=== PATIENT | male | born 2000 | race Two or more races ===

== ENCOUNTER 2024-12-01 16:05 | Inpatient (IN) | payer MEDICAID, OTHER ==
[~2024-12-01] VITALS: Ht 182.9 cm; Wt 82.6 kg
--- NOTE | 2024-12-01 16:50 | ED.PDOC ---
History of Present Illness HPI Comments 24 y/o M, with a history of pneumothorax and tobacco use, presents from [facility] urgent care facility for c/o chest pain, shortness of breath wither exertion, lightheadedness, and dizziness for 1x week, today. Patient reports being sent, due to complaints and having an abnormal EKG. Patient endorses on no recent sick contact, strenuous activities, or stressors. He denies any nausea, vomiting, palpitations, fever, chills, or other associated symptoms or modifiers at this time. Patent reports remote history of spontaneous pneumothorax 1 year ago. Chief Complaint: Chest Pain Time Seen by MD: 16:30 Reviewed Notes: Nurses Notes, Medications, Allergies Allergies: Coded Allergies: Amoxicillin (Verified Allergy, Unknown, 12/01/24) Erythromycin (Verified Allergy, Unknown, 12/01/24) Information Source: Patient Mode of Arrival: Wheelchair Severity: Moderate Timing: Weeks Duration: Since onset Prehospital treatment: None Past Medical History Past Medical History (Other): pneumothorax Surgical History (Other): left-knee surgery Family History Family History: Unknown Social History Smoker: Cigarettes Alcohol: Denies ETOH Use Drugs: Denies Drug Use Lives In: Home All Other Systems: Reviewed and Negative (Comprehensive systems review obtained and negative except for what is stated in the HPI.) Physical Exam General Appearance: Moderate Distress HEENT: Normal ENT Inspection, Pharynx Normal, TMs Normal Neck: Full Range of Motion, Non-Tender, Normal, Normal Inspection Respiratory: Other (Coarse breath sounds) Cardiovascular: No Edema, No JVD, No Murmur, No Gallop, Normal Peripheral Pulses, Regular Rate/Rhythm Breast Exam: Deferred Gastrointestinal: No Organomegaly, Non Tender, No Pulsatile Mass, Normal Bowel Sounds, Soft Genitalia: Deferred Pelvic: Deferred Rectal: Deferred Extremities: No calf tenderness, Normal capillary refill, Normal inspection, Normal range of motion, Non-tender, No pedal edema Musculoskeletal : Apperance: Normal Neurologic: Alert, soil and plant scientist II-XII nml as Tested, No Motor Deficits, Normal Affect, Normal Mood, No Sensory Deficits Cerebellar Function: Normal Reflexes: Normal Skin: Dry, Normal Color, Warm Peripheral Pulses: 3+ Radial (R), 3+ Radial (L) Lymphatic: No Adenopathy Was a procedure done? Was a procedure done?: No Differential Dx Considerations may include: [place], PE, ACS, URI, viral syndrome, COPD exacerbation, among others X-Ray, Labs, Meds, VS Vital Signs Date Time Temp Pulse Resp B/P (MAP) Pulse Ox O2 Delivery O2 Flow Rate FiO2 12/01/24 16:23 100.0 70 18 105/65 (78) 100 100.0 12/01/24 16:15 75 Patient alert. Complaining of shortness a breath. Saturation pristine on room air. Heart rate within normal limits. COPD. History of emphysema. Blebs. Unable to ambulate without being short of breath. Possibly will need CT chest. Establish intravenous access. Was given Levaquin. Reviewed his previous visit. Explained to the patient. Continue monitoring. EKG reviewed does not show any acute changes. Time of 1ST Reevaluation: 17:00 Reevaluation 1ST: Unchanged Patient Education/Counseling: Diagnosis, Treatment Family Education/Counseling: No Family Present Departure 1 Departure Time of Disposition: 17:10 Impression: Primary Impression: COPD exacerbation Additional Impression: Pneumonitis Disposition: ADMITTED INPATIENT Admit to: Med Surg Condition: Guarded Critical Care Note Critical Care Time?: No Stability Stability form required: No Heart Score Heart Score: Heart Score Response (Comments) Value History Moderate Suspicious 1 EKG Normal 0 Age <45 0 Risk Factors >3 or Hx ASHD 2 Troponin Normal limit 0 Total 3 I personally scribed for LEX HALL MD ([email or web address]) on 12/01/24 at 16:50. Electronically submitted by Erwin Glover ([email or web address]). LEX HALL MD Dec 01, 2024 16:50
--- NOTE | 2024-12-01 17:32 | DVH ---
EXAM: XY CHEST PORTABLE TECHNIQUE: Single frontal chest radiograph CLINICAL HISTORY: sob COMPARISON: None Findings/Impression: Frontal chest radiograph demonstrates no acute osseous or superficial soft tissue abnormalities. The trachea is midline. The cardiac silhouette and mediastinum are within normal limits. No pneumothorax, pleural effusions, or consolidations.
[2024-12-01 17:33] LABS: Basophils # (auto) 0 10 ^3/uL (0-0.2); Basophils % (auto) 0.7 % (0.0-2.0); Eosinophils # (auto) 0.1 10 ^3/uL (0-0.8); Eosinophils % (auto) 1.1 % (0.0-7.0); Hemoglobin 15.3 g/dL (13.5-17.5); Lymphocytes # (auto) 1.8 10 ^3/uL (0.4-5.4); Lymphocytes % (auto) 27.8 % (10.0-50.0); Mean Corpuscular Hemoglobin 30.7 pg (28.0-32.0); Mean Corpuscular Hgb Conc. 34.1 g/dL (32.0-36.0); Mean Corpuscular Volume 90.2 fL (80.0-100.0); Monocytes # (auto) 0.4 10 ^3/uL (0-1.3); Monocytes % (auto) 6.6 % (0.0-12.0); Neutrophils # (auto) 4.2 10 ^3/uL (1.6-8.6); Neutrophils % (auto) 63.8 % (37.0-80.0); Platelet Count (auto) 212 10^3/uL (140-450); Red Blood Cells 4.99 10^6/uL (4.5-5.90); Red Cell Distribution Width 13.2 % (11.8-14.3); White Blood Cell 6.5 10^3/uL (4.4-10.8)
[2024-12-01 17:43] LABS: Chloride 106 mmol/L (98-107); Potassium 3.8 mmol/L (3.5-5.1); Sodium 140 mmol/L (136-145)
[2024-12-01 17:44] LABS: Anion Gap 12 (5-15); Calcium 10.4 mg/dL (8.7-10.4); Carbon Dioxide 22 mmol/L (20-31)
[2024-12-01 17:49] LABS: BUN/Creatinine Ratio 10.9 (10.0-20.0); Blood Urea Nitrogen 12 mg/dL (9-23); Glucose 89 mg/dL (74-106)
[2024-12-01] MEDS: levoFLOXacin 500MG 100 ML IV ONE (17:54)
[2024-12-01 19:32] VITALS: RESP 18
[2024-12-01] MEDS: ACETAMINOPHEN 325 MG TAB PO ONE (19:47)
[2024-12-01] MEDS: ASPirin 81 mg TAB PO ONE (19:47)
--- NOTE | 2024-12-01 21:44 | DVH ---
EXAM: XY CHEST XRAY 1 VIEW CLINICAL HISTORY: Chest pain TECHNIQUE: Single AP view of the chest WID: COMPARISON: XY CHEST PORTABLE on DOS: 12/01/24 FINDINGS: Lines and tubes: None Chest: The heart size and pulmonary vasculature is within normal limits. No pleural effusion, pneumothorax, or consolidation. The osseous structures are grossly intact. IMPRESSION: No acute cardiopulmonary abnormality.
[2024-12-01] MEDS: KETOROLAC TROMETH 30 MG/ML 1ML VIAL IV ONE (22:01)
[2024-12-01] MEDS: MORPHINE SULFATE INJ 2 MG/ml SYRG IV ONE (22:01)
--- NOTE | 2024-12-01 22:53 | DVHHPRES ---
History of Present Illness Resident Creating Document: JOHANNE TURNER RESIDENT History of Present Illness 24-year-old male patient with past medical history of spontaneous pneumothorax, tobacco use disorder presented with complaints of chest pain, shortness of breath, lightheadedness, syncope. Patient started having chest pain one month ago for which she went to [place] where he was discharged and was told that he has blebs on the imaging, went to [place] where he was discharged from the ED. patient started having on and off chest pain and for last seven days mentioned the chest pain is constant which he describes as diffuse, nonradiating, sharp, no relation with activity or posterior, no aggravating or relieving factors. He also mentioned for last three days he started having associated shortness of breath which increased on exertion and lightheadedness, per girlfriend bedside patient blacked out for 30 seconds three days ago. Patient mentioned that he had spontaneous pneumothorax one year ago for which he had chest tube placement. He also mentioned he was told that he has 2 mm lung nodule. Past medical history Spontaneous pneumothorax Migraine Past Surgical history Chest tube placement Medication history Sumatriptan and ondansetron Social history Patient vapes, takes around 40 puffs every day, used to smoke two pack cigarettes before that Occasional alcohol use Denied marijuana or any other drug intake Allergic history Amoxicillin and azithromycin Family history Lung cancer at the age of 25, Graves disease Review of Systems Review of Systems As described in the HPI Allergies: Coded Allergies: Amoxicillin (Verified Allergy, Unknown, 12/01/24) Erythromycin (Verified Allergy, Unknown, 12/01/24) Exam Vital Signs Vital Signs Date Time Temp Pulse Resp B/P (MAP) Pulse Ox O2 Delivery O2 Flow Rate FiO2 12/01/24 22:01 72 18 101/58 12/01/24 21:05 98.7 100 98.7 12/01/24 19:32 Room Air* 0 21 21 Exam Examination General Appearance: Alert, Oriented X3, Cooperative, No acute distress HEENT: EOMI Respiratory: Clear to auscultation, Normal air movement Cardiovascular: Regular rate, Normal S1, Normal S2 Abdominal: Normal bowel sounds Extremities: No cyanosis, No edema, Normal pulses, No tenderness/swelling Skin: No rashes, No breakdown Neuro: Normal gait, Normal speech, Strength at 5/5 X4 ext, Normal tone, Sensation intact, Cranial nerves 3-12 NL, Reflexes 2+ Psych/Mental Status: Mental status NL, Mood NL Labs/Xrays Labs Test 12/01/24 21:20 12/01/24 16:41 Range/Units Troponin I High Sensitivity 4 </=54 ng/L White Blood Count 6.5 4.4-10.8 10^3/uL Red Blood Count 4.99 4.5-5.90 10^6/uL Hemoglobin 15.3 13.5-17.5 g/dL Hematocrit 45.0 41.0-53.0 % Mean Corpuscular Volume 90.2 80.0-100.0 fL Mean Corpuscular Hemoglobin 30.7 28.0-32.0 pg Mean Corpuscular Hemoglobin Concent 34.1 32.0-36.0 g/dL Red Cell Distribution Width 13.2 11.8-14.3 % Platelet Count 212 140-450 10^3/uL Mean Platelet Volume 9.3 6.9-10.8 fL Neutrophils (%) (Auto) 63.8 37.0-80.0 % Lymphocytes (%) (Auto) 27.8 10.0-50.0 % Monocytes (%) (Auto) 6.6 0.0-12.0 % Eosinophils (%) (Auto) 1.1 0.0-7.0 % Basophils (%) (Auto) 0.7 0.0-2.0 % Neutrophils # (Auto) 4.2 1.6-8.6 10 ^3/uL Lymphocytes # (Auto) 1.8 0.4-5.4 10 ^3/uL Monocytes # (Auto) 0.4 0-1.3 10 ^3/uL Eosinophils # (Auto) 0.1 0-0.8 10 ^3/uL Basophils # (Auto) 0 0-0.2 10 ^3/uL Nucleated Red Blood Cells 0.0 % D-Dimer, Quantitative < 0.19 0.0-0.49 mg/L FEU Sodium Level 140 136-145 mmol/L Potassium Level 3.8 3.5-5.1 mmol/L Chloride Level 106 98-107 mmol/L Carbon Dioxide Level 22 20-31 mmol/L Anion Gap 12 5-15 Blood Urea Nitrogen 12 9-23 mg/dL Creatinine 1.10 0.700-1.30 mg/dL Glomerular Filtration Rate Calc 96 >90 mL/min BUN/Creatinine Ratio 10.9 10.0-20.0 Serum Glucose 89 74-106 mg/dL Calcium Level 10.4 8.7-10.4 mg/dL Assessment/Plan Assessment/Plan Assessment/plan # acute hypoxic respiratory failure, currently on 2 L # history of spontaneous pneumothorax -duo nebs p.r.n. -CT chest -IV antibiotics considering patient has fever and pleuritic type of chest pain with possibility of pneumonia # chest pain, rule out ACS -pleuritic type of chest pain, which is sharp -EKG, trops # syncope Head CT with CTA head and neck Carotid ultrasound Echocardiogram TSH, B12, folate # lung nodule Repeat CT chest # tobacco and vaping use disorder -Counseling for cessation VT prophylaxis Patient is ambulatory Case discussion with Dr. Sorensen Plan discussed with: Other My Orders Orders - JOHANNE TURNER Procedure Category Date Status Time Admit ADMIT 12/01/24 Transmitted 22:21 Oxygen By Nasal RT 12/01/24 Transmitted Cannula 22:21 Stat Ekg For Chest MIRIAM 12/01/24 In Process Pain 22:21 Notify Md Of Changes MIRIAM 12/01/24 In Process From Base 22:21 Certified Forklift Operator For MIRIAM 12/01/24 In Process 24 Hours 22:21 Emergency Dysrhythmia MIRIAM 12/01/24 In Process Protocol 22:21 Rhythm Strips Once [facility] 12/01/24 In Process Every Shift 22:21 Date of Service: Dec 01, 2024 Billing Provider: RADHA SORENSEN MD Common Visit Codes: [id number] INP/OBS CARE (HIGH) JOHANNE TURNER RESIDENT Dec 01, 2024 22:53 RADHA SORENSEN MD Dec 02, 2024 19:37
[2024-12-01] MEDS: cefTRIAXone 1GM/50ML D5W 50 ML IV ONE (23:45)
[2024-12-01 23:52] VITALS: BP 101/58; PULSE 72; RESP 18; TEMP 98.7; O2SAT 98
[2024-12-02] VITALS (14 sets, daily range): BP systolic 97–117; BP diastolic 50–74; PULSE 54–72; RESP 14–28; TEMP 97–97.7; O2SAT 98–100
[2024-12-02 00:13] LABS: Folate (Folic Acid) 14.99 ng/mL (>5.38)
[2024-12-02] MEDS: IOHEXOL 350 MG/ML 100ML IJ ONE (00:34)
--- NOTE | 2024-12-02 00:41 | DVH ---
Carotid Duplex Clinical History: SYNCOPE Comparison: None Technique: Duplex Doppler evaluation of the extracranial carotid and vertebral arteries including color Doppler and spectral/pulsed waveform analysis was performed. Findings: RIGHT SIDE: No significant atherosclerotic plaque noted. The peak systolic velocities are 136 cm/s in the CCA, 139 cm/s in the ICA. The ICA/CCA ratio is 1.0. The external carotid artery is patent with peak systolic velocity of 87 cm/s proximally. There is appropriate antegrade flow in the right vertebral artery. LEFT SIDE: No significant atherosclerotic plaque noted. The peak systolic velocities are 124 cm/s in the CCA, 118 cm/s in the ICA. The ICA/CCA ratio is 1.0. The external carotid artery is patent with peak systolic velocity of 91 cm/s proximally. There is appropriate antegrade flow in the left vertebral artery. IMPRESSION: No evidence of hemodynamically significant stenosis. Reference: Radiology 2003; 229:340-346 Normal ICA PSV is <125 cm/sec and no plaque or intimal thickening is visible sonographically additional criteria include ICA/CCA PSV ratio <2.0 and ICA EDV <40 cm/sec <50% ICA stenosis ICA PSV is <125 cm/sec and plaque or intimal thickening is visible sonographically additional criteria include ICA/CCA PSV ratio <2.0 and ICA EDV <40 cm/sec 50-69% ICA stenosis ICA PSV is 125-230 cm/sec and plaque is visible sonographically additional criteria include ICA/CCA PSV ratio of 2.0-4.0 and ICA EDV of 40-100 cm/sec 70% ICA stenosis but less than near occlusion ICA PSV is >230 cm/sec and visible plaque and luminal narrowing are seen at mason-scale and color Dopp ler ultrasound (the higher the Doppler parameters lie above the threshold of 230 cm/sec, the greater the likelihood of severe disease) additional criteria include ICA/CCA PSV ratio >4 and ICA EDV >100 cm/sec
[2024-12-02] MEDS: DOXYCYCLINE 100MG/100ML 100 ML IV ONE (00:43)
--- NOTE | 2024-12-02 00:48 | DVH ---
INDICATION: SYNCOPE COMPARISON: None TECHNIQUE: CTA head without and with intravenous contrast. CTA neck with intravenous contrast. 3D image postprocessing was performed on a dedicated workstation and images were used for interpretation and reporting. Radiation Dose Information: CT Dose: CTDI volume is mGy. Dose-length product is mGy*cm FINDINGS: CT head: There is no evidence of intracranial hemorrhage, infarct, extra-axial collection, mass effect, midli ne shift, herniation or hydrocephalus. The ventricles, sulci and cisterns are normal. The mason-whit e differentiation is normal. Visualized paranasal sinuses and mastoid air cells are clear. Soft ti ssues and osseous structures are unremarkable. CTA head: No abnormality is demonstrated in intracranial ICAs, MCAs, and ACAs. Intracranial vertebral arteries, basilar artery, and recreation attendant supervisor are also unremarkable. Visualized intracranial venous structures are grossl y unremarkable. CTA neck: Aortic arch and proximal great vessels are unremarkable. Left common, internal and external carotid arteries are normal. Right common, internal and external carotid arteries are normal. Cervical segments of the right and left vertebral arteries are normal. Limited visualized lung apices are clear. Soft tissues and osseous structures are grossly unremarkab le. IMPRESSION: No abnormality demonstrated. All CT scans at this medical facility are performed using dose modulation techniques as appropriate t o a performed exam including the following: Automated exposure control was utilized; adjustment of th e MA and/or KV according to patient size; and use of iterative reconstruction technique.
[2024-12-02] MEDS: IPRATROPIUM BROM 0.5 MG/2.5ML INH SOL NEB PRN (01:35)
[2024-12-02] MEDS: ALBUTEROL SULF 2.5 MG/0.5ML(0.5%) NEB SOLN NEB PRN (01:36)
--- NOTE | 2024-12-02 01:54 | DVH ---
Procedure: CT CHEST WITHOUT CONTRAST Reason for study/Clinical History: SHORTNESS OF BREATH Comparison Study: None available at time of dictation. Exam Date: 12/02/2024 12:05 AM TECHNIQUE: Multidetector CT of the chest was performed from the lung apices to the upper abdomen with out the use of intravenous contract. Axial, coronal and sagittal multiplanar reformats were performed . Radiation Dose Information: CT Dose: CTDI volume is mGy. Dose-length product is mGy*cm The dose indicators for CT are the volume Computed Tomography (CT) Dose Index (CTDIvol) and the Dose Length Product (DLP), and are measured in units of mGy and mGy-cm, respectively. These indicators are not patient dose, but values generated from the CT scanner acquisition factors. The report includes radiation exposure data for exposures received during this examination. FINDINGS: Lower neck: Unremarkable. Lungs: No focal consolidation. Pleura: No pleural effusion or pneumothorax. Heart/Vascular Structures: Normal heart size. No pericardial effusion. Normal thoracic aorta. Mediastinum / Lymph Nodes: No abnormality demonstrated. No lymphadenopathy. Musculoskeletal: No acute osseous abnormality. Soft tissues: Unremarkable. Upper abdomen: Unremarkable. IMPRESSION: No abnormality demonstrated. Radiation optimization: All CT scans at this facility use at least one of these dose optimization turner hniques: automated exposure control mA and/or kV adjustment per patient size (includes targeted exam s where dose is matched to clinical indication) or iterative reconstruction.
[2024-12-02] MEDS: KETOROLAC TROMETH 30 MG/ML 1ML VIAL IV PRN (01:55)
[2024-12-02 04:06] LABS: COVID19 ANTIGEN SOFIA FIA NEGATIVE (NEGATIVE); Rapid Influenza A Negative (Negative); Rapid Influenza B Negative (Negative)
[2024-12-02] MEDS ORDERED: ACET-1304 PO (04:07)
[2024-12-02] MEDS ORDERED: ZOFR4T PO (04:07)
[2024-12-02] MEDS ORDERED: SUMA100T15 PO (04:07)
[2024-12-02] MEDS ORDERED: ALBUAER3 IN (04:07)
--- NOTE | 2024-12-02 04:53 | ECG ---
[facility] Test Date: 2024-12-02 Test Time: 00:41:28 Pat Name: GRACIELA HOPE Department: ED Room: 0270T Gender: M Tool Carrier: : 2000 Requested By: JOHANNE TURNER Order Number: [id number] Reading MD: Ricco Ewing Measurements Intervals [place] Rate: 66 P: 0 KS: 131 QRS: -83 QRSD: 90 T: 22 QT: 395 QTc: 414 Interpretive Statements Sinus rhythm Atrial premature complex Left anterior fascicular block Probable anteroseptal infarct, old Electronically Signed On 12-07-2024 20:41:51 PDT by Ricco Ewing Please click the below link to view image of tracing.
[2024-12-02 05:44] LABS: Urine Bacteria None Seen /hpf (None Seen)
[2024-12-02 06:31] LABS: Urine Blood Negative /uL (Negative); Urine Clarity Clear (Clear); Urine Color Yellow (Yellow); Urine Protein, UAD 1+ (Negative); Urine Specific Gravity > 1.035 (1.001-1.035); Urine Squamous Epithelial Cell None Seen /hpf (<5); Urine Urobilinogen 2 mg/dL (Negative); Urine WBC 4 /HPF (0-3); Urine pH 7.5 (5.0-9.0)
[2024-12-02 06:34] LABS: Opiate Scree,Urine Pos (NEGATIVE); Phencyclidine Screen, Urine Neg (NEGATIVE)
[2024-12-02 06:41] LABS: Amphetamine Screen, Urine Neg (NEGATIVE); Barbiturate Scree,Urine Neg (NEGATIVE); Benzodiazephine Screen, Urine Neg (NEGATIVE); Cannabinoid Screen, Urine Neg (NEGATIVE); Cocaine Screen, Urine Neg (NEGATIVE)
[2024-12-02] MEDS: MORPHINE SULFATE INJ 2 MG/ml SYRG IV PRN (06:48)
--- NOTE | 2024-12-02 11:39 | ECG ---
[facility] Test Date: 2024-12-02 Test Time: 10:14:43 Pat Name: GRACIELA HOPE Department: [facility] Room: 0270T Gender: M Ip Network Architect: krystal : 2000 Requested By: KHADAR PETTIT Order Number: [id number] Reading MD: Ricco Ewing Measurements Intervals [place] Rate: 47 P: 59 DE: 160 QRS: -56 QRSD: 98 T: 28 QT: 424 QTc: 375 Interpretive Statements Sinus bradycardia LAD, consider left anterior fascicular block Anterior infarct, old Electronically Signed On 12-07-2024 20:47:01 PDT by Ricco Ewing Please click the below link to view image of tracing.
--- NOTE | 2024-12-02 12:33 | DVHSR ---
APPROVED REPORT EXAM: Two-dimensional and M-mode echocardiogram with Doppler and color Doppler. Blood Pressure: 127/68 mmHg INDICATION MONTERO RISK FACTORS Height: 70, Weight: 145 DIMENSIONS LVDd4.9 (3.8-5.7cm)LA (2D)3.5 (1.9-4.0cm)Aortic Root3.2 (2.0-3.7cm) LVDs3.2 (2.5-4.0cm)LA (MM) (1.9-4.0cm)Aortic Cusp Exc1.9 (1.5-2.0cm) EF (%) 64.0 (55-70%)Rt. Atrium (1.9-4.0cm)Asc. Aorta cm IVSd0.8 (0.7-1.1cm)RV (D) (1.8-2.4cm) PWd0.8 (0.7-1.1cm) Mitral Valve MitralMitral Stenosis E wave0.60m/sMV Mean GR.mmHg A wave0.48m/sMV Peak GR.mmHg E/A ratio1.32D MVAcm2 DECEL [id number] 1/2 Timems Aortic Valve Aortic ValveAortic Stenosis V10.73m/Yuliya Mean GR.3mmHg V21.21m/Yuliya Peak GR.6mmHg LVOT Diameter1.9 (1.8-2.4cm)Doppler AVA1.71cm2 Pulmonic Valve V20.82m/s Other Information Technically limited study due to body habitus and patient position. Conclusion lvef 60% by visual estimate normal RV function no severe valve abnormalities noted dilated IVC is noted, trivial pericardial effusion
--- NOTE | 2024-12-02 13:19 | DVHPNRES ---
Progress Note Date Seen: Dec 02, 2024 Resident Creating Document: CINTHYA BISHOP RESIDENT Has the PT tested + for MRSA If YES, has PT been informed?: No Medical Necessity Reason Pt with a Central, PICC or Fol: No Medical Necessity Reason 24-year-old male patient with past medical history of spontaneous pneumothorax, tobacco use disorder presented with complaints of chest pain, shortness of breath, lightheadedness, syncope. Patient started having chest pain one month ago for which she went to [place] where he was discharged and was told that he has blebs on the imaging, went to [place] where he was discharged from the ED. patient started having on and off chest pain and for last seven days mentioned the chest pain is constant which he describes as diffuse, nonradiating, sharp, no relation with activity or posterior, no aggravating or relieving factors. He also mentioned for last three days he started having associated shortness of breath which increased on exertion and lightheadedness, per girlfriend bedside patient blacked out for 30 seconds three days ago. Patient mentioned that he had spontaneous pneumothorax one year ago for which he had chest tube placement. He also mentioned he was told that he has 2 mm lung nodule. Past medical history :Spontaneous pneumothorax,Migraine Past Surgical history: Chest tube placement Medication history: Sumatriptan and ondansetron Social history: Patient vapes, takes around 40 puffs every day, used to smoke two pack cigarettes before that, Occasional alcohol use, Denied marijuana or any other drug intake Allergic history: Amoxicillin and azithromycin Family history: Lung cancer at the age of 25, Graves disease PN: 12/02/2024 Patient continue to have chest pain. Ischemic work up thus far is negative. He is currently on pain management and oxygen. His UDS came back positive for fentanyl and opiates. Opiates most likely from the morphine he received at the Hospital early. ECHO showed lvef 60% by visual estimate normal RV function Subjective Review of Systems Constitutional: Denies fever no chills no feeling of malaise, generalized chest discomfort HEENT: Denies headache, ear pain, ear discharges, conjunctivitis, nasal discharge throat pain Cardiovascular: chest discomfort, tensed feeling, palpitation, orthopnea, PND, or pedal edema Respiratory: Denies shortness of breath, cough cough, sputum production, hemoptysis, GI: Denies abdominal pain, nausea, vomiting, diarrhea, hematemesis, hematochezia, : Denies frequency, urgency, hematuria, Endocrine: Denies unintentional weight gain or weight loss, feeling of hot flashes, Richie: Denies easy bruising, bleeding disorders, epistaxis Musculoskeletal: Denies joint pains, muscle aches Psych: No evidence of depression, michael, suicidal ideation Objective vital signs Vital Sign Date Time Temp Pulse Resp B/P (MAP) Pulse Ox O2 Delivery O2 Flow Rate FiO2 12/02/24 13:10 97.7 54 15 97/60 (72) 100 97.7 12/02/24 10:00 Nasal Cannula* 2 28 Total Intake and Output 12/01/24 12/01/24 12/02/24 15:00 23:00 07:00 Intake Total 500 ml Balance 500 ml medications Current Medications Medications Dose Ordered Sig/Larry Route Start Time Stop Time Status Last Admin Dose Admin Ipratropium [place] 0.5 mg Q4HPRN PRN NEB 12/01/24 23:45 12/02/24 01:35 0.5 MG Albuterol 2.5 mg Q4HPRN PRN NEB 12/01/24 23:45 12/02/24 01:36 2.5 MG Ketorolac Tromethamine 15 mg Q6HPRN PRN IV 12/02/24 01:15 12/07/24 01:14 12/02/24 09:22 15 MG Morphine Sulfate 0.5 mg Q6HP PRN IV 12/02/24 05:45 12/02/24 06:48 0.5 MG Examination General Appearance: Alert, Oriented X3, Cooperative, No acute distress, chest pressure HEENT: Atraumatic, PERRLA, EOMI, Mucous membrane moist/pink Respiratory: Clear to auscultation, Normal air movement Cardiovascular: bradycardia, Normal S1, Normal S2, No murmurs, no chest wall tenderness Abdominal: NO distention, no tenderness, bowel sounds present, no scars noted Extremities: No clubbing, No cyanosis, No edema, Normal pulses, No tenderness/swelling Skin: No rashes, No breakdown, No significant lesion Neuro: Normal gait, Normal speech, Strength at 5/5 X4 ext, Normal tone, Sensation intact, Cranial nerves 3-12 NL, Reflexes 2+ Psych/Mental Status: Mental status NL, Mood NL laboratory and microbiology Laboratory Tests 12/01/24 16:41 Test 12/01/24 16:41 Range/Units Serum Glucose 89 74-106 mg/dL Problem List/Assessment/Plan Problem List/Assessment/Plan Assessment Recurrent small Spontaneous pneumothorax --> History of spontaneous pneumothorax --> Pain management --> Oxygen PRN, on 2L oxygen Acute hypoxic respiratory failure, currently on 2 L --> duo nebs p.r.n. --> CT chest: --> IV antibiotics considering patient has fever and pleuritic type of chest pain with possibility of pneumonia Chest pain, ACS ruled out -->pleuritic type of chest pain, which is sharp -->EKG : Bradycardia HR 47, Tropos: Negative -->Echo: lvef 60% by visual estimate,normal RV function Chest pain likely due to recurrent spontaneous pneumothorax Bradycardia likely secondary to Fentanyl and opiates abuse --> HR: 47 --> EKG: shows bradycardia --> Counselled patient extensively on polysubstance abusive Polysubstance use and dependence -->UDS positive: Fentanyl and opiates Syncope Head CT with CTA head and neck: No abnormality demonstrated. Carotid ultrasound: No evidence of hemodynamically significant stenosis. Echocardiogram: lvef 60% by visual estimate normal RV function TSH, B12, folate: WNL Lung nodule --> Repeat CT chest: Lungs: No focal consolidation. --> follow up with the pulmonology out patient Tobacco and vaping use disorder -Counseling for cessation DVT prophylaxis Patient is ambulatory Goal of care discussed for more than 18 minutes: Full code Case and plan discussed + Dr. Ventura Plan discussed with: Patient My Orders My Orders Orders - CINTHYA BISHOP Procedure Category Date Status Time Electrocardigram EKG 12/02/24 Logged 09:55 Date of Service: Dec 02, 2024 Billing Provider: ISABEL VENTURA MD Common Visit Codes: [id number] INP/OBS CARE(HIGH) CINTHYA BISHOP Dec 02, 2024 13:19 ISABEL VENTURA MD Dec 07, 2024 21:52
--- NOTE | 2024-12-02 15:05 | ECG ---
[facility] Test Date: 2024-12-01 Test Time: 16:13:21 Pat Name: GRACIELA HOPE Department: ED Room: 0270T Gender: M Custom Clothier: ALTAGRACIA : 2000 Requested By: LEX HALL Order Number: [id number] Reading MD: Ricco Ewing Measurements Intervals [place] Rate: 75 P: 85 CT: 156 QRS: -79 QRSD: 93 T: 62 QT: 393 QTc: 439 Interpretive Statements Sinus rhythm Left anterior fascicular block Anterior infarct, old Baseline wander in lead(s) V5,V6 Electronically Signed On 12-07-2024 20:39:07 PDT by Ricco Ewing Please click the below link to view image of tracing.
[2024-12-02] MEDS: LACTATED RINGER'S 1,000 ML IV SCH (18:37)
[2024-12-02] MEDS: KETOROLAC TROMETH 30 MG/ML 1ML VIAL IV SCH (18:56)
[2024-12-02] MEDS: ACETAMINOPHEN 325 MG TAB PO PRN (22:06)
[2024-12-03] VITALS (12 sets, daily range): BP systolic 94–115; BP diastolic 42–60; PULSE 51–75; RESP 16–19; TEMP 97.1–98.4; O2SAT 97–100
[2024-12-03] MEDS: LACTATED RINGER'S 1,000 ML IV SCH (10:19)
[2024-12-03 13:40] LABS: Opiate Scree,Urine Pos (NEGATIVE); Phencyclidine Screen, Urine Neg (NEGATIVE)
--- NOTE | 2024-12-03 13:50 | DVH ---
EXAM: CT Chest Without Intravenous Contrast CLINICAL INDICATION: reassess the size of the Pneumothorax TECHNIQUE: Axial computed tomography images of the chest without intravenous contrast. This CT exam was performed using one or more of the following dose reduction techniques: automated exposure cont rol, adjustment of the mA and/or kV according to patient size, and/or use of iterative reconstruction technique. CONTRAST: RADIATION DOSE: CTDIvol = 5.68 mGy, DLP = 230.48 mGy-cm COMPARISON: CT CHEST WITHOUT CONTRAST on DOS: 12/02/24 FINDINGS: LUNGS AND PLEURAL SPACES: Bleb in the left lung apex. No pneumothorax. No significant effusion. HEART: Unremarkable. No cardiomegaly. No significant pericardial effusion. No significant man ry artery calcifications. BONES/JOINTS: Unremarkable. No acute fracture. No dislocation. SOFT TISSUES: Unremarkable. VASCULATURE: Unremarkable. No thoracic aortic aneurysm. LYMPH NODES: Unremarkable. No enlarged lymph nodes. OTHER FINDINGS: . IMPRESSION: Bleb in the left lung apex. No pneumothorax.
[2024-12-03 13:51] LABS: Amphetamine Screen, Urine Neg (NEGATIVE); Barbiturate Scree,Urine Neg (NEGATIVE); Benzodiazephine Screen, Urine Neg (NEGATIVE); Cannabinoid Screen, Urine Neg (NEGATIVE); Cocaine Screen, Urine Neg (NEGATIVE)
[2024-12-03 14:31] LABS: Basophils # (auto) 0 10 ^3/uL (0-0.2); Basophils % (auto) 0.7 % (0.0-2.0); Eosinophils # (auto) 0.1 10 ^3/uL (0-0.8); Eosinophils % (auto) 2.3 % (0.0-7.0); Hematocrit 44.3 % (41.0-53.0); Hemoglobin 14.8 g/dL (13.5-17.5); Lymphocytes # (auto) 1.9 10 ^3/uL (0.4-5.4); Lymphocytes % (auto) 31.4 % (10.0-50.0); Mean Corpuscular Hemoglobin 30.2 pg (28.0-32.0); Mean Corpuscular Hgb Conc. 33.3 g/dL (32.0-36.0); Mean Corpuscular Volume 90.8 fL (80.0-100.0); Monocytes # (auto) 0.4 10 ^3/uL (0-1.3); Neutrophils # (auto) 3.6 10 ^3/uL (1.6-8.6); Neutrophils % (auto) 59.6 % (37.0-80.0); Nucleated Red Blood Cells % 0.1 %; Platelet Count (auto) 185 10^3/uL (140-450); Red Blood Cells 4.88 10^6/uL (4.5-5.90); Red Cell Distribution Width 12.9 % (11.8-14.3)
[2024-12-03 14:36] LABS: Chloride 105 mmol/L (98-107); Potassium 3.9 mmol/L (3.5-5.1); Sodium 139 mmol/L (136-145)
[2024-12-03 14:37] LABS: Anion Gap 7 (5-15); Carbon Dioxide 27 mmol/L (20-31)
[2024-12-03 14:38] LABS: Calcium 9.9 mg/dL (8.7-10.4)
[2024-12-03 14:43] LABS: BUN/Creatinine Ratio 18.1 (10.0-20.0); Blood Urea Nitrogen 19 mg/dL (9-23); Glucose 84 mg/dL (74-106)
--- NOTE | 2024-12-03 18:00 | DVHPNRES ---
Progress Note Date Seen: Dec 03, 2024 Resident Creating Document: CINTHYA BISHOP RESIDENT Has the PT tested + for MRSA If YES, has PT been informed?: No Medical Necessity Reason Pt with a Central, PICC or Fol: No Medical Necessity Reason 24-year-old male patient with past medical history of spontaneous pneumothorax, tobacco use disorder presented with complaints of chest pain, shortness of breath, lightheadedness, syncope. Patient started having chest pain one month ago for which she went to [place] where he was discharged and was told that he has blebs on the imaging, went to [place] where he was discharged from the ED. patient started having on and off chest pain and for last seven days mentioned the chest pain is constant which he describes as diffuse, nonradiating, sharp, no relation with activity or posterior, no aggravating or relieving factors. He also mentioned for last three days he started having associated shortness of breath which increased on exertion and lightheadedness, per girlfriend bedside patient blacked out for 30 seconds three days ago. Patient mentioned that he had spontaneous pneumothorax one year ago for which he had chest tube placement. He also mentioned he was told that he has 2 mm lung nodule. Past medical history :Spontaneous pneumothorax,Migraine Past Surgical history: Chest tube placement Medication history: Sumatriptan and ondansetron Social history: Patient vapes, takes around 40 puffs every day, used to smoke two pack cigarettes before that, Occasional alcohol use, Denied marijuana or any other drug intake Allergic history: Amoxicillin and azithromycin Family history: Lung cancer at the age of 25, Graves disease PN: 12/02/2024: Patient continue to have chest pain. Ischemic work up thus far is negative. He is currently on pain management and oxygen. His UDS came back positive for fentanyl and opiates. Opiates most likely from the morphine he received at the Hospital early. ECHO showed lvef 60% by visual estimate normal RV function PN: 12/03/2024 Patient is seen and examined today by the bedside. I told the patient about the presence of fentanyl and all of his in his urine. Opiates most likely from the morphine the patient had received here for fentanyl can not tell why he came home. Better this afternoon patient's mother came upset that we are indicating said he has an uses drugs. I sent a lot of time explaining to have that are more going by data that was present on the patient. This plan by step everything that has been done to the patient's since he has been here had the patient walk with the nurse and patient is seems to be breathing through his mouth however he was sat thus 100%. Mother had meal repeat the patient's urinalysis in UDS and also a chest CT. A repeat CT chest today ( 12/03/2024) revealed Bleb in the left lung apex. No pneumothorax. Management is mainly oxygen and pain management. A repeat UDS still is positive for fentanyl. Of note, mother mentioned that she has a 2nd son also has blebs in his lungs and one of their cousins female, also get spontaneous pneumothorax. Patient's father had pneumothorax after MVA which is was attributed to the trauma. Patient's mother also mentioned that their grandfather also had similar body habitus with pectus excavatum as noted in this patient. Patient also has a mild mild scoliosis. There seem to be a genetic component to this spontaneous p neumothorax. They have never been tested for alpha 1 anti-trypsin. Mother was present. Had many questions regarding the fentanyl found in patient's urine. Subjective Review of Systems Constitutional: Denies fever no chills no feeling of malaise feeling well whilst lying down. he seems breathless mobility, but sating at 100% HEENT: Denies headache, ear pain, ear discharges, conjunctivitis, nasal discharge throat pain Cardiovascular: chest pain/ tightness, palpitation, orthopnea, PND, or pedal edema Respiratory: shortness of breath on walking, cough, sputum production, hemoptysis, GI: Denies abdominal pain, nausea, vomiting, diarrhea, hematemesis, hematochezia, : Denies frequency, urgency, hematuria, Endocrine: Denies unintentional weight gain or weight loss, feeling of hot flashes, Richie: Denies easy bruising, bleeding disorders, epistaxis Musculoskeletal: Denies joint pains, muscle aches Psych: No evidence of depression, michael, suicidal ideation Objective vital signs Vital Sign Date Time Temp Pulse Resp B/P (MAP) Pulse Ox O2 Delivery O2 Flow Rate FiO2 12/03/24 17:00 97.3 64 17 115/42 (66) 99 97.3 12/03/24 13:06 Room Air* 0 21 Total Intake and Output 12/02/24 12/02/24 12/03/24 15:00 23:00 07:00 Intake Total 0 ml 1075 ml Output Total 550 ml Balance 0 ml 525 ml medications Current Medications Medications Dose Ordered Sig/Larry Route Start Time Stop Time Status Last Admin Dose Admin Ipratropium [place] 0.5 mg Q4HPRN PRN NEB 12/01/24 23:45 12/03/24 13:06 0.5 MG Albuterol 2.5 mg Q4HPRN PRN NEB 12/01/24 23:45 12/03/24 13:06 2.5 MG Morphine Sulfate 0.5 mg Q6HP PRN IV 12/02/24 05:45 12/02/24 13:44 0.5 MG Ketorolac Tromethamine 15 mg Q6HR IV 12/02/24 18:00 12/07/24 17:59 12/03/24 06:09 15 MG Acetaminophen 650 mg Q6HP PRN PO 12/02/24 18:15 12/02/24 22:06 650 MG Lactated Ringer's 1,000 ml @ 125 mls/hr Q8H IV 12/03/24 08:00 12/03/24 17:02 125 MLS/HR Examination General Appearance: Alert, Oriented X3, Cooperative, Seem in mild distress when walking, was breathing through his mouth, but SPO2 was 100% HEENT: Atraumatic, PERRLA, EOMI, Mucous membrane moist/pink Respiratory: Clear to auscultation, Normal air movement Cardiovascular: MILD TENDERNESS Regular rate, Normal S1, Normal S2, No murmurs, no chest wall tenderness Abdominal: NO distention, no tenderness, bowel sounds present, no scars noted Extremities: No clubbing, No cyanosis, No edema, Normal pulses, No tenderness/swelling Skin: No rashes, No breakdown, No significant lesion Neuro: Normal gait, Normal speech, Strength at 5/5 X4 ext, Normal tone, Sensation intact, Cranial nerves 3-12 NL, Reflexes 2+ Psych/Mental Status: Mental status NL, Mood NL laboratory and microbiology Laboratory Tests 12/03/24 13:43 Test 12/03/24 13:43 Range/Units Serum Glucose 84 74-106 mg/dL Problem List/Assessment/Plan Problem List/Assessment/Plan Assessment Recurrent small Spontaneous pneumothorax --> Repeat CT chest: Bleb in the left lung apex. No pneumothorax. --> History of spontaneous pneumothorax --> Pain management --> Oxygen PRN, on 2L oxygen Acute hypoxic respiratory failure, currently on 2 L --> duo nebs p.r.n. --> CT chest: --> IV antibiotics considering patient has fever and pleuritic type of chest pain with possibility of pneumonia Chest pain, ACS ruled out -->pleuritic type of chest pain, which is sharp -->EKG : Bradycardia HR 47, Tropos: Negative -->Echo: lvef 60% by visual estimate,normal RV function Mild hypotension Dizziness on walking --> NS bolus Constipation --> Miralax Chest pain likely due to recurrent spontaneous pneumothorax Bradycardia likely secondary to Fentanyl --> HR: 47 --> EKG: shows bradycardia --> Counselled patient extensively on polysubstance abusive Polysubstance use and dependence --> Repeat UDS 12/03/2024: still positive for fentanyl -->UDS positive: Fentanyl Syncope Head CT with CTA head and neck: No abnormality demonstrated. Carotid ultrasound: No evidence of hemodynamically significant stenosis. Echocardiogram: lvef 60% by visual estimate normal RV function TSH, B12, folate: WNL Lung nodule --> Repeat CT chest: Lungs: No focal consolidation. --> follow up with the pulmonology out patient Tobacco and vaping use disorder -Counseling for cessation DVT prophylaxis Patient is ambulatory Goal of care discussed for more than 18 minutes: Full code Case and plan discussed + Dr. Ventura Plan discussed with: Patient, Other (mother) My Orders My Orders Orders - CINTHYA BISHOP Procedure Category Date Status Time Acetaminophen Tablet PHA 12/02/24 In Process (Tylenol Tablet) 18:15 Lactated Ringer's PHA 12/03/24 In Process 08:00 High Flow Delivery MIRIAM 12/03/24 In Process Assessment 12:[address] 12/03/24 Resulted 12:40 Pt Request For Service PT 12/03/24 Logged 13:03 Sodium Chloride 0.9% PHA 12/03/24 Logged 18:00 Date of Service: Dec 03, 2024 Billing Provider: ISABEL VENTURA MD Common Visit Codes: [id number] INP/OBS CARE(HIGH) CINTHYA BISHOP Dec 03, 2024 18:00 ISABEL VENTURA MD Dec 07, 2024 22:05
[2024-12-03] MEDS: SODIUM CHLORIDE 0.9% 500 ML IV ONE (18:15)
[2024-12-03] MEDS: POLYETHYLENE GLYCOL 17 GM PWDR PO ONE (18:34)
[2024-12-04] VITALS (11 sets, daily range): BP systolic 100–115; BP diastolic 45–63; PULSE 48–68; RESP 17; TEMP 97.1–98; O2SAT 98–100
--- NOTE | 2024-12-04 12:57 | ECG ---
[facility] Test Date: 2024-12-03 Test Time: 20:16:45 Pat Name: GRACIELA HOPE Department: Respiratoy Room: 0270T B Gender: M Physician Intensivist: BERTHA : 2000 Requested By: FLOYD HORNER Order Number: [id number] Reading MD: Ricco Ewing Measurements Intervals [place] Rate: 64 P: 62 FL: 153 QRS: -57 QRSD: 93 T: 17 QT: 395 QTc: 408 Interpretive Statements Sinus rhythm Left axis deviation Anterior infarct, old Electronically Signed On 12-07-2024 20:32:42 PDT by Ricco Ewing Please click the below link to view image of tracing.
--- NOTE | 2024-12-04 15:42 | DVHPN2 ---
Assessment/Plan Assessment/Plan Progress note 24-year-old male patient with past medical history of spontaneous pneumothorax, tobacco use disorder presented with complaints of chest pain, shortness of breath, lightheadedness, syncope. Patient started having chest pain one month ago for which she went to [place] where he was discharged and was told that he has blebs on the imaging, went to [place] where he was discharged from the ED. patient started having on and off chest pain and for last seven days mentioned the chest pain is constant which he describes as diffuse, nonradiating, sharp, no relation with activity or posterior, no aggravating or relieving factors. He also mentioned for last three days he started having associated shortness of breath which increased on exertion and lightheadedness, per girlfriend bedside patient blacked out for 30 seconds three days ago. seen today during round, failed walking test due to fatigue, echo grossly normal. no localized weakness. sending w/u myositis physical exam aox1 PERRLA MMM thin pectus excavatum s1 s2 rrr clear breath sounds abdomen soft nontender no le edema moving all extremity no joint laxity labs ekg imaging reviwed assessment and plan Recurrent small Spontaneous pneumothorax Acute hypoxic respiratory failure, currently on 2 L Chest pain, ACS ruled out Mild hypotension Dizziness on walking Constipation Chest pain likely due to recurrent spontaneous pneumothorax Bradycardia likely secondary to Fentanyl Polysubstance use and dependence Syncope Lung nodule r/o polymyositis and CTD, a1 antitripsin Tobacco and vaping use disorder --> Repeat CT chest: Lungs: No focal consolidation. --> follow up with the pulmonology out patient --> Repeat UDS 12/03/2024: still positive for fentanyl -->UDS positive: Fentanyl --> HR: 47 --> EKG: shows bradycardia --> Counselled patient extensively on polysubstance abusive --> Miralax --> NS bolus -->pleuritic type of chest pain, which is sharp -->EKG : Bradycardia HR 47, Tropos: Negative -->Echo: lvef 60% by visual estimate,normal RV function --> duo nebs p.r.n. --> CT chest: --> IV antibiotics considering patient has fever and pleuritic type of chest pain with possibility of pneumonia --> Repeat CT chest: Bleb in the left lung apex. No pneumothorax. --> History of spontaneous pneumothorax --> Pain management --> Oxygen PRN, on 2L oxygen liver US ESR CRP KAROLINA CK dvt ppx ambulatory diet reg Plan discussed with: Patient My Orders Orders - ISABEL VENTURA MD Procedure Category Date Status Time Karolina Direct W/Reflex LAB 12/04/24 Logged To Comp. 15:33 Creatine Kinase LAB 12/04/24 Logged 15:33 Erythrocyte LAB 12/04/24 Logged Sedimentation Rate 15:33 C-Reactive Protein LAB 12/04/24 Logged 15:33 LIVER US 12/04/24 Logged 15:33 Date of Service: Dec 04, 2024 Billing Provider: ISABEL VENTURA MD Common Visit Codes: [id number] INP/OBS CARE(HIGH) ISABEL VENTURA MD Dec 04, 2024 15:42
[2024-12-04 16:53] LABS: Creatine Kinase IFCC 56 U/L (46-171)
[2024-12-04 16:55] LABS: CRP High Sensitivity < 0.02 mg/dL (<1.0)
[2024-12-04 18:18] LABS: Erythrocyte Sedimentation Rate 2 mm/hr (0-20)
[2024-12-05] VITALS (14 sets, daily range): BP systolic 85–121; BP diastolic 47–61; PULSE 51–83; RESP 16–18; TEMP 97.6–98.6; O2SAT 96–100
--- NOTE | 2024-12-05 00:30 | DVH ---
INDICATION: a1 atnitripsin TECHNIQUE: Multiple real-time sonographic images of the abdomen were obtained. COMPARISON: None FINDINGS: Liver is normal in size measuring 15.7 cm and echogenicity with no lesions identified. There is no intrahepatic or extrahepatic biliary ductal dilatation with the common bile duct measurin g 2.5 mm. Gallbladder appears unremarkable with no evidence of stones or wall thickening. Right kidney measures 9.9 cm and appears unremarkable with no hydronephrosis. Pancreas is obscured by overlying bowel gas. No fluid collection noted. IMPRESSION: No abnormality demonstrated.
--- NOTE | 2024-12-05 18:10 | DVHPNRES ---
Progress Note Date Seen: Dec 05, 2024 Resident Creating Document: CINTHYA BISHOP RESIDENT Has the PT tested + for MRSA If YES, has PT been informed?: No Medical Necessity Reason Pt with a Central, PICC or Fol: No Medical Necessity Reason 24-year-old male patient with past medical history of spontaneous pneumothorax, tobacco use disorder presented with complaints of chest pain, shortness of breath, lightheadedness, syncope. Patient started having chest pain one month ago for which she went to [place] where he was discharged and was told that he has blebs on the imaging, went to [place] where he was discharged from the ED. patient started having on and off chest pain and for last seven days mentioned the chest pain is constant which he describes as diffuse, nonradiating, sharp, no relation with activity or posterior, no aggravating or relieving factors. He also mentioned for last three days he started having associated shortness of breath which increased on exertion and lightheadedness, per girlfriend bedside patient blacked out for 30 seconds three days ago. Patient mentioned that he had spontaneous pneumothorax one year ago for which he had chest tube placement. He also mentioned he was told that he has 2 mm lung nodule. Past medical history :Spontaneous pneumothorax,Migraine Past Surgical history: Chest tube placement Medication history: Sumatriptan and ondansetron Social history: Patient vapes, takes around 40 puffs every day, used to smoke two pack cigarettes before that, Occasional alcohol use, Denied marijuana or any other drug intake Allergic history: Amoxicillin and azithromycin Family history: Lung cancer at the age of 25, Graves disease PN: 12/02/2024: Patient continue to have chest pain. Ischemic work up thus far is negative. He is currently on pain management and oxygen. His UDS came back positive for fentanyl and opiates. Opiates most likely from the morphine he received at the Hospital early. ECHO showed lvef 60% by visual estimate normal RV function PN: 12/03/2024 Patient is seen and examined today by the bedside. I told the patient about the presence of fentanyl and all of his in his urine. Opiates most likely from the morphine the patient had received here for fentanyl can not tell why he came home. Better this afternoon patient's mother came upset that we are indicating said he has an uses drugs. I sent a lot of time explaining to have that are more going by data that was present on the patient. This plan by step everything that has been done to the patient's since he has been here had the patient walk with the nurse and patient is seems to be breathing through his mouth however he was sat thus 100%. Mother had meal repeat the patient's urinalysis in UDS and also a chest CT. A repeat CT chest today ( 12/03/2024) revealed Bleb in the left lung apex. No pneumothorax. Management is mainly oxygen and pain management. A repeat UDS still is positive for fentanyl. Of note, mother mentioned that she has a 2nd son also has blebs in his lungs and one of their cousins female, also get spontaneous pneumothorax. Patient's father had pneumothorax after MVA which is was attributed to the trauma. Patient's mother also mentioned that their grandfather also had similar body habitus with pectus excavatum as noted in this patient. Patient also has a mild mild scoliosis. There seem to be a genetic component to this spontaneous p neumothorax. They have never been tested for alpha 1 anti-trypsin. Mother was present. Had many questions regarding the fentanyl found in patient's urine. PN: 12/05/2024 seen today during round. Lying in bed. He failed yesterday 12/04 due to fatigue, echo grossly normal. no localized weakness. sending w/u myositis Subjective Review of Systems Constitutional: Denies fever no chills no feeling of malaise at rest. sob on exertion HEENT: Denies headache, ear pain, ear discharges, conjunctivitis, nasal discharge throat pain Cardiovascular: Denies chest pain, palpitation, orthopnea, PND, or pedal edema Respiratory: shortness of breath on exertion, cough cough, sputum production, hemoptysis, GI: Denies abdominal pain, nausea, vomiting, diarrhea, hematemesis, hematochezia, : Denies frequency, urgency, hematuria, Endocrine: Denies unintentional weight gain or weight loss, feeling of hot flashes, Richie: Denies easy bruising, bleeding disorders, epistaxis Musculoskeletal: Denies joint pains, muscle aches Psych: No evidence of depression, michael, suicidal ideation Objective vital signs Vital Sign Date Time Temp Pulse Resp B/P (MAP) Pulse Ox O2 Delivery O2 Flow Rate FiO2 12/05/24 17:00 97.7 57 16 103/57 (72) 100 97.7 12/05/24 10:00 Nasal Cannula 2.0 12/05/24 10:00 28 Total Intake and Output 12/04/24 12/04/24 12/05/24 15:00 23:00 07:00 Intake Total 1480 ml 1800 ml Output Total 400 ml Balance 1480 ml 1400 ml medications Current Medications Medications Dose Ordered Sig/Larry Route Start Time Stop Time Status Last Admin Dose Admin Ipratropium [place] 0.5 mg Q4HPRN PRN NEB 12/01/24 23:45 12/03/24 13:06 0.5 MG Albuterol 2.5 mg Q4HPRN PRN NEB 12/01/24 23:45 12/03/24 13:06 2.5 MG Morphine Sulfate 0.5 mg Q6HP PRN IV 12/02/24 05:45 12/05/24 15:43 0.5 MG Ketorolac Tromethamine 15 mg Q6HR IV 12/02/24 18:00 12/07/24 17:59 12/05/24 12:45 15 MG Acetaminophen 650 mg Q6HP PRN PO 12/02/24 18:15 12/02/24 22:06 650 MG Lactated Ringer's 1,000 ml @ 125 mls/hr Q8H IV 12/03/24 08:00 12/05/24 12:45 125 MLS/HR Examination General Appearance: Alert, Oriented X3, Cooperative, No acute distress HEENT: Atraumatic, PERRLA, EOMI, Mucous membrane moist/pink Respiratory: Clear to auscultation, Normal air movement Cardiovascular: Regular rate, Normal S1, Normal S2, No murmurs, no chest wall tenderness Abdominal: NO distention, no tenderness, bowel sounds present, no scars noted Extremities: No clubbing, No cyanosis, No edema, Normal pulses, No tenderness/swelling Skin: No rashes, No breakdown, No significant lesion Neuro: Normal gait, Normal speech, Strength at 5/5 X4 ext, Normal tone, Sensation intact, Cranial nerves 3-12 NL, Reflexes 2+ Psych/Mental Status: Mental status NL, Mood NL laboratory and microbiology Laboratory Tests 12/03/24 13:43 Test 12/03/24 13:43 Range/Units Serum Glucose 84 74-106 mg/dL Problem List/Assessment/Plan Problem List/Assessment/Plan Assessment Recurrent small Spontaneous pneumothorax --> Repeat CT chest: Bleb in the left lung apex. No pneumothorax. --> History of spontaneous pneumothorax --> Pain management --> Oxygen PRN, on 2L oxygen Acute hypoxic respiratory failure, currently on 2 L --> duo nebs p.r.n. --> CT chest: --> IV antibiotics considering patient has fever and pleuritic type of chest pain with possibility of pneumonia Chest pain, ACS ruled out -->pleuritic type of chest pain, which is sharp -->EKG : Bradycardia HR 47, Tropos: Negative -->Echo: lvef 60% by visual estimate,normal RV function Mild hypotension Dizziness on walking --> NS bolus Constipation --> Miralax Chest pain likely due to recurrent spontaneous pneumothorax Bradycardia likely secondary to Fentanyl --> HR: 47 --> EKG: shows bradycardia --> Counselled patient extensively on polysubstance abusive Polysubstance use and dependence --> Repeat UDS 12/03/2024: still positive for fentanyl -->UDS positive: Fentanyl Syncope Head CT with CTA head and neck: No abnormality demonstrated. Carotid ultrasound: No evidence of hemodynamically significant stenosis. Echocardiogram: lvef 60% by visual estimate normal RV function TSH, B12, folate: WNL Lung nodule --> Repeat CT chest: Lungs: No focal consolidation. --> follow up with the pulmonology out patient Tobacco and vaping use disorder -Counseling for cessation R/o polymyositis and CTD, a1 antitripsin --> Patient mentioned a family history of cirrhosis --> Pending ALAN DVT prophylaxis Patient is ambulatory Goal of care discussed for more than 18 minutes: Full code Case and plan discussed + Dr. Ventura Plan discussed with: Patient Date of Service: Dec 05, 2024 Billing Provider: ISABEL VENTURA MD Common Visit Codes: [id number] INP/OBS CARE(HIGH) CINTHYA BISHOP RESIDENT Dec 05, 2024 18:10 ISABEL VENTURA MD Dec 07, 2024 22:11
[2024-12-06] VITALS (12 sets, daily range): BP systolic 94–123; BP diastolic 41–76; PULSE 48–75; RESP 17–22; TEMP 97.7–98.3; O2SAT 98–100
[2024-12-06 12:07] LABS: Anti-Nuclear Antibody Direct Negative (Negative)
--- NOTE | 2024-12-06 15:33 | DVH ---
EXAM: NM NM VQ SCAN HISTORY: PULMONARY EMBOLISM COMPARISON: None TECHNIQUE: 3.8 mCi of Tc99m MAA were utilized for the perfusion portion of the study. 4.3 mCi of xenon 133 were utilized for the ventilation portion of the study. FINDINGS: Ventilation and perfusion images show homogeneous uptake of the radiotracer in both lungs without joel tilation or perfusion defects. IMPRESSION: 1. Normal VQ scan. Very low probability for pulmonary embolism.
--- NOTE | 2024-12-06 18:54 | DVHINCON2 ---
Date Seen: Dec 06, 2024 Referring Physician MD Rafy Reason for Consultation Chest pain with family hx of CV disease History of Present Illness This is a young 24-year-old who presented to the emergency room with a chief complaint of chest pain intermittent x1 month. The patient was referred to our facility from an urgent care clinic in the setting of chest pain associated with shortness of breath, dizziness, and presyncope. He underwent multiple 12 lead electrocardiograms x3 revealing a normal sinus rhythm. nursing support worker reviewed revealing a sinus bradycardia rhythm at rest at 49 bpm. Serial troponin levels x3 are negative. Cardiology consulted given persistent chest pain with a family history for CV disease. Father on the phone states he had unspecified heart disease secondary to Grave's disease, paternal grandfather and some of his cousins with CHF. Denies family history for coronary artery disease. Sign ificant medical history includes discontinue pneumothorax diagnosed at [facility] on 09/2023, asthma, current e-cigarette use with a history of tobacco use including 28 pack-years, migraine headaches, and occasional alcohol use. Past Medical History Past medical history reviewed. No other significant than mentioned above. Past Surgical History Left knee Family History: Diabetes mellitus G8 FATHER Thyroid disease G8 FATHER Family History Family history reviewed. See HPI. Social History See HPI. UDS positive for fentanyl. Allergies: Coded Allergies: Amoxicillin (Verified Allergy, Unknown, 12/01/24) Erythromycin (Verified Allergy, Unknown, 12/01/24) Home Meds Reported Medications Sumatriptan Succinate (Sumatriptan Succinate) 100 Mg Tab, 1 TAB PO UD, #9 TAB 3 Refills 12/02/24 Acetaminophen (Tylenol Extra Strength) 500 Mg Tab, 500 MG PO, TAB 12/02/24 Ondansetron Odt 4MG Tab (ZOFRAN PO) 4 Mg Tb, 4 MG PO, TAB ODT TAB-DISSOLVE IN MOUTH, THEN SWALLOW 12/02/24 Albuterol Sulfate (VENTOLIN MDI) 90 Mcg Ih, 90 MCG IN, INH 12/02/24 Home Meds Home medications reviewed. Review of Systems Constitutional: No symptom reported Ears, Nose, & Throat: No symptom reported Eyes: No symptom reported Neurological: Dizziness Pulmonary/Respiratory: SOB Cardiovascular: Chest pain Gastrointestinal: No symptom reported Genitourinary: No symptom reported Musculoskeletal: No symptom reported Skin: No symptom reported Psychiatric: No symptom reported Endocrine: No symptom reported Hemotologic/Lymphatic: No symptom reported Vital Signs Vital Signs Date Time Temp Pulse Resp B/P (MAP) Pulse Ox O2 Delivery O2 Flow Rate FiO2 12/06/24 17:21 98.2 53 18 113/65 (81) 100 98.2 12/06/24 10:00 Nasal Cannula 2.0 12/06/24 10:00 28 Physical Exam General Appearance: Cooperative. Well developed. Well nourished. In no acute distress Head Exam: Normal inspection Neck Exam: Normal inspection. Non-tender. Normal alignment Pulmonary/Respiratory: Chest non-tender. Clear bilateral breath sounds. O2 via NC Cardiovascular/Chest: Regular rate and rhythm. S1, S2. NSR. No murmurs. No JVD. Peripheral Pulses: 2+ Radial (R). 2+ Radial (L). 2+ Pedal (R). 2+ Pedal (L) Abdominal Exam: Normal bowel sounds. Soft. Nontender. No hepatospenomegaly. No masses Ankle Exam: Negative ankle edema Lower extremities: Negative lower extremity edema Neuro/Mental Status: A&O x4. Coherent Thoughts/Psych: Normal thought pattern. Appropriate mood and affect. Good judgement and insight Appearance: In no acute distress Skin Exam: Normal inspection. Normal color. Warm. Dry Labs/Diagnostic Data Labs Test 12/04/24 16:27 12/03/24 13:43 12/03/24 12:40 12/02/24 05:00 Range/Units Erythrocyte Sedimentation Rate 2 0-20 mm/hr Creatine Kinase 56 46-171 U/L C-Reactive Protein High Sensitivity < 0.02 <1.0 mg/dL Anti-Nuclear Antibody Screen Negative Negative White Blood Count 6.0 4.4-10.8 10^3/uL Red Blood Count 4.88 4.5-5.90 10^6/uL Hemoglobin 14.8 13.5-17.5 g/dL Hematocrit 44.3 41.0-53.0 % Mean Corpuscular Volume 90.8 80.0-100.0 fL Mean Corpuscular Hemoglobin 30.2 28.0-32.0 pg Mean Corpuscular Hemoglobin Concent 33.3 32.0-36.0 g/dL Red Cell Distribution Width 12.9 11.8-14.3 % Platelet Count 185 140-450 10^3/uL Mean Platelet Volume 9.1 6.9-10.8 fL Neutrophils (%) (Auto) 59.6 37.0-80.0 % Lymphocytes (%) (Auto) 31.4 10.0-50.0 % Monocytes (%) (Auto) 6.0 0.0-12.0 % Eosinophils (%) (Auto) 2.3 0.0-7.0 % Basophils (%) (Auto) 0.7 0.0-2.0 % Neutrophils # (Auto) 3.6 1.6-8.6 10 ^3/uL Lymphocytes # (Auto) 1.9 0.4-5.4 10 ^3/uL Monocytes # (Auto) 0.4 0-1.3 10 ^3/uL Eosinophils # (Auto) 0.1 0-0.8 10 ^3/uL Basophils # (Auto) 0 0-0.2 10 ^3/uL Nucleated Red Blood Cells 0.1 % Sodium Level 139 136-145 mmol/L Potassium Level 3.9 3.5-5.1 mmol/L Chloride Level 105 98-107 mmol/L Carbon Dioxide Level 27 20-31 mmol/L Anion Gap 7 5-15 Blood Urea Nitrogen 19 9-23 mg/dL Creatinine 1.05 0.700-1.30 mg/dL Glomerular Filtration Rate Calc 102 >90 mL/min BUN/Creatinine Ratio 18.1 10.0-20.0 Serum Glucose 84 74-106 mg/dL Calcium Level 9.9 8.7-10.4 mg/dL Urine Opiates Screen Pos NEGATIVE Urine Fentanyl Screen Pos NEGATIVE Urine Barbiturates Screen Neg NEGATIVE Urine Phencyclidine Screen Neg NEGATIVE Urine Amphetamines Screen Neg NEGATIVE Urine Benzodiazepines Screen Neg NEGATIVE Urine Cocaine Screen Neg NEGATIVE Urine Cannabinoids Screen Neg NEGATIVE Urine Color Yellow Yellow Urine Clarity Clear Clear Urine pH 7.5 5.0-9.0 Urine Specific D[place]gren > 1.035 H 1.001-1.035 Urine Protein 1+ H Negative Urine Ketones Negative Negative Urine Blood Negative Negative /uL Urine Nitrite Negative Negative Urine Bilirubin Negative Negative Urine Urobilinogen 2 H Negative mg/dL Urine Leukocyte Esterase Negative Negative /uL Urine RBC 8 0 - 3 /hpf Urine Microscopic WBC 4 H 0-3 /HPF Urine Squamous Epithelial Cells None seen <5 /hpf Urine Calcium Oxalate Crystals Few None Seen Urine Bacteria None seen None Seen /hpf Urine Glucose Normal Normal mg/dL Test 12/02/24 02:45 12/01/24 23:54 12/01/24 21:20 12/01/24 16:41 Range/Units Influenza Type A Antigen Negative Negative Influenza Type B Antigen Negative Negative SARS-CoV-2 Antigen (Rapid) Negative NEGATIVE Troponin I High Sensitivity 4 </=54 ng/L Vitamin B12 Level 483 211-911 pg/mL Folic Acid 14.99 >5.38 ng/mL Thyroid Stimulating Hormone (TSH) 1.86 0.55-4.78 uIU/mL D-Dimer, Quantitative < 0.19 0.0-0.49 mg/L FEU Assessment Persistent chest pain rule out congenital heart disease Recurrent small spontaneous pneumothorax Dilated inferior vena cava Rule out orthostatic hypotension Sinus bradycardia at rest Pertinent family history of CHF Substance abuse with fentanyl Nicotine dependence Plan/Recommendation (Dr. Ewing) Doubt chest pain secondary to ACS. We will continue further cardiac evaluation with a repeat transthoracic echocardiogram with bubble study to rule out congenital heart disease. Obtain an ABG given reported hypoxia and current O2 via NC. nursing support worker revealed a sinus bradycardia rhythm at rest with no evidence of atrioventricular blocks or sinus pauses. Continue with the orthostatic vital signs. Further orders per clinical course. Thank you for allowing us to participate in this patient's care. Please call if you have any questions or concerns. This medical document was created using an electronic medical record system with voice recognition software and computerized dictation system. Although this document has been carefully reviewed, there might still be some phonetic and typographical errors. Occasional wrong-word or ``sound-alike substitutions may have occurred due to the inherent limitations of voice recognition software. These areas are purely typographical due to imperfections of the software programs and do not reflect any compromise in the patient's medical care. Please read the chart carefully and recognize, using context, where these substitutions have occurred. Plan discussed with: Patient, Other NYHA Physical activity limitations: NA Date of Service: Dec 06, 2024 Billing Provider: ALE HORN Cardiology Common Codes: [id number] INP/OBS CARE (High) ALE HORN Dec 06, 2024 18:54
[2024-12-06 19:00] LABS: Base Excess -0.3 mmol/L (-2.0-3.0)
--- NOTE | 2024-12-06 20:02 | DVHPNRES ---
Progress Note Date Seen: Dec 06, 2024 Resident Creating Document: CINTHYA BISHOP RESIDENT Has the PT tested + for MRSA If YES, has PT been informed?: No Medical Necessity Reason Pt with a Central, PICC or Fol: No Medical Necessity Reason 24-year-old male patient with past medical history of spontaneous pneumothorax, tobacco use disorder presented with complaints of chest pain, shortness of breath, lightheadedness, syncope. Patient started having chest pain one month ago for which she went to [facility] where he was discharged and was told that he has blebs on the imaging, went to [place] where he was discharged from the ED. patient started having on and off chest pain and for last seven days mentioned the chest pain is constant which he describes as diffuse, nonradiating, sharp, no relation with activity or posterior, no aggravating or relieving factors. He also mentioned for last three days he started having associated shortness of breath which increased on exertion and lightheadedness, per girlfriend bedside patient blacked out for 30 seconds three days ago. Patient mentioned that he had spontaneous pneumothorax one year ago for which he had chest tube placement. He also mentioned he was told that he has 2 mm lung nodule. Past medical history :Spontaneous pneumothorax,Migraine Past Surgical history: Chest tube placement Medication history: Sumatriptan and ondansetron Social history: Patient vapes, takes around 40 puffs every day, used to smoke two pack cigarettes before that, Occasional alcohol use, Denied marijuana or any other drug intake Allergic history: Amoxicillin and azithromycin Family history: Lung cancer at the age of 25, Graves disease PN: 12/02/2024: Patient continue to have chest pain. Ischemic work up thus far is negative. He is currently on pain management and oxygen. His UDS came back positive for fentanyl and opiates. Opiates most likely from the morphine he received at the Hospital early. ECHO showed lvef 60% by visual estimate normal RV function PN: 12/03/2024 Patient is seen and examined today by the bedside. I told the patient about the presence of fentanyl and all of his in his urine. Opiates most likely from the morphine the patient had received here for fentanyl can not tell why he came home. Better this afternoon patient's mother came upset that we are indicating said he has an uses drugs. I sent a lot of time explaining to have that are more going by data that was present on the patient. This plan by step everything that has been done to the patient's since he has been here had the patient walk with the nurse and patient is seems to be breathing through his mouth however he was sat thus 100%. Mother had meal repeat the patient's urinalysis in UDS and also a chest CT. A repeat CT chest today ( 12/03/2024) revealed Bleb in the left lung apex. No pneumothorax. Management is mainly oxygen and pain management. A repeat UDS still is positive for fentanyl. Of note, mother mentioned that she has a 2nd son also has blebs in his lungs and one of their cousins female, also get spontaneous pneumothorax. Patient's father had pneumothorax after MVA which is was attributed to the trauma. Patient's mother also mentioned that their grandfather also had similar body habitus with pectus excavatum as noted in this patient. Patient also has a mild mild scoliosis. There seem to be a genetic component to this spontaneous p neumothorax. They have never been tested for alpha 1 anti-trypsin. Mother was present. Had many questions regarding the fentanyl found in patient's urine. PN: 12/04/2024:Seen by Dr. Ventura PN: 12/05/2024: Patient seen today during round. Lying in bed. He failed yesterday 12/04 due to fatigue, echo grossly normal. no localized weakness.ALAN blood requested. pending the result. Patient said he was able to walk with PT. although tired he is been pushing through. PN: 12/06/2024: Patient seen today during round. Lying in bed. He failed yesterday 12/04 due to fatigue, echo grossly normal. no localized weakness.ALAN blood requested. pending AN result. Consult Cardiology and pulmonology to review the case. Subjective Review of Systems Constitutional: Denies fever no chills no feeling of malaise, fatigued and weakness on walking HEENT: Denies headache, ear pain, ear discharges, conjunctivitis, nasal discharge throat pain Cardiovascular: Denies chest pain, palpitation, orthopnea, PND, or pedal edema Respiratory: Denies shortness of breath at rest, but shortness of breath with exertion, no cough, sputum production, hemoptysis, GI: Denies abdominal pain, nausea, vomiting, diarrhea, hematemesis, hematochezia, : Denies frequency, urgency, hematuria, Endocrine: Denies unintentional weight gain or weight loss, feeling of hot flashes, Richie: Denies easy bruising, bleeding disorders, epistaxis Musculoskeletal: Denies joint pains, muscle aches Psych: No evidence of depression, michael, suicidal ideation Objective vital signs Vital Sign Date Time Temp Pulse Resp B/P (MAP) Pulse Ox O2 Delivery O2 Flow Rate FiO2 12/06/24 19:31 99 Room Air 0.0 12/06/24 19:31 21 12/06/24 17:21 98.2 53 18 113/65 (81) 98.2 Total Intake and Output 12/05/24 12/05/24 12/06/24 15:00 23:00 07:00 Intake Total 500 ml 1000 ml 800 ml Output Total 650 ml Balance 500 ml 1000 ml 150 ml medications Current Medications Medications Dose Ordered Sig/Larry Route Start Time Stop Time Status Last Admin Dose Admin Ipratropium [place] 0.5 mg Q4HPRN PRN NEB 12/01/24 23:45 12/03/24 13:06 0.5 MG Albuterol 2.5 mg Q4HPRN PRN NEB 12/01/24 23:45 12/03/24 13:06 2.5 MG Morphine Sulfate 0.5 mg Q6HP PRN IV 12/02/24 05:45 12/06/24 11:36 0.5 MG Ketorolac Tromethamine 15 mg Q6HR IV 12/02/24 18:00 12/07/24 17:59 12/06/24 18:05 15 MG Acetaminophen 650 mg Q6HP PRN PO 12/02/24 18:15 12/02/24 22:06 650 MG Lactated Ringer's 1,000 ml @ 125 mls/hr Q8H IV 12/03/24 08:00 12/06/24 16:00 125 MLS/HR Examination General Appearance: Alert, Oriented X3, Cooperative, No acute distress, skinny built, tall, mild temporally wasting HEENT: Atraumatic, PERRLA, EOMI, Mucous membrane moist/moint, no lens dislocation or displacement, wears dentures Respiratory: pectus excavatum, ribs obvious Clear to auscultation, Normal air movement Cardiovascular: Regular rate, Normal S1, Normal S2, No murmurs, no chest wall tenderness Abdominal: flat , no tenderness, bowel sounds present, no scars noted Extremities: arms are proportional, No finger joint laxity, No clubbing, No cyanosis, No edema, Normal pulses, No tenderness/swelling Skin: No rashes, No breakdown, No significant lesion, no skin laxity Neuro: Normal gait thought slow, Normal speech, Strength at 5/5 X4 ext, Normal tone, Sensation intact, Cranial nerves 3-12 NL, Reflexes 2+ Psych/Mental Status: Mental status NL, Mood NL laboratory and microbiology Laboratory Tests 12/03/24 13:43 Test 12/03/24 13:43 Range/Units Serum Glucose 84 74-106 mg/dL Problem List/Assessment/Plan Problem List/Assessment/Plan Assessment Recurrent small Spontaneous pneumothorax --> Repeat CT chest: Bleb in the left lung apex. No pneumothorax. --> History of spontaneous pneumothorax --> Pain management --> Oxygen PRN, on 2L oxygen Acute hypoxic respiratory failure, currently on 2 L --> duo nebs p.r.n. --> CT chest: --> IV antibiotics considering patient has fever and pleuritic type of chest pain with possibility of pneumonia Chest pain, ACS ruled out -->pleuritic type of chest pain, which is sharp -->EKG : Bradycardia HR 47, Tropos: Negative -->Echo: lvef 60% by visual estimate,normal RV function Mild hypotension Dizziness on walking,myositiis --> NS bolus Myositis work up --> ALAN pending Constipation --> Miralax Chest pain likely due to recurrent spontaneous pneumothorax Bradycardia likely secondary to Fentanyl --> HR: 47 --> EKG: shows bradycardia --> Counselled patient extensively on polysubstance abusive Polysubstance use and dependence --> Repeat UDS 12/03/2024: still positive for fentanyl -->UDS positive: Fentanyl Syncope Head CT with CTA head and neck: No abnormality demonstrated. Carotid ultrasound: No evidence of hemodynamically significant stenosis. Echocardiogram: lvef 60% by visual estimate normal RV function TSH, B12, folate: WNL Lung nodule --> Repeat CT chest: Lungs: No focal consolidation. --> follow up with the pulmonology out patient Tobacco and vaping use disorder -Counseling for cessation R/o polymyositis and CTD, a1 antitripsin --> Patient mentioned a family history of cirrhosis --> Pending ALAN DVT prophylaxis Patient is ambulatory Goal of care discussed for more than 18 minutes: Full code Case and plan discussed + Dr. Ventura Plan discussed with: Patient My Orders My Orders Orders - CINTHYA BISHOP Procedure Category Date Status Time * Cardiology Consult CONS 12/06/24 Transmitted 16:29 *Consult CONS 12/06/24 Transmitted / 16:29 Dietary Evaluation Review Comments: Continue current plan of care Expected Outcomes/Goals: PO intake to meet 75% estimated needs FU 5-7 days Date of Service: Dec 06, 2024 Billing Provider: ISABEL VENTURA MD Common Visit Codes: [id number] INP/OBS CARE(HIGH) CINTHYA BISHOP Dec 06, 2024 20:02 ISABEL VENTURA MD Dec 08, 2024 20:45
--- NOTE | 2024-12-06 20:45 | DVHINCON2 ---
Date of service: Dec 06, 2024 Referring Physician Twyla Owens MD Reason for Consultation Acute hypoxic respiratory failure History of Present Illness A 24-year-old man with past medical history of spontaneous pneumothorax, migraine and tobacco use who presented to ED on 12/01/24 with complaints of chest pain, shortness of breath, lightheadedness and syncope. Patient reported onset of chest pain 1 month ago, for which he went to [place] where he was discharged and told that he had blebs on imaging. He went to [facility] where he was discharged from the ED. Patient reported on and off chest pain for the last 7 days; mentioned the chest pain is constant which he describes as diffuse, nonradiating, sharp, no relation with activity and no aggravating or relieving factors. He also c/o associated shortness of breath x3 days, increased on exertion, as well as lightheadedness; per girlfriend at bedside patient blacked out for 30 seconds three days ago. Patient mentioned he had spontaneous pneumothorax one year ago, for which he had chest tube placement. He also was told that he has a 2 mm lung nodule. Patient was admitted for further care and pulmonary consultation is requested for evaluation and management due to the above findings. Review of Systems: 14-point review of systems negative unless otherwise noted above. Past Medical History: Spontaneous pneumothorax Pt states he was told he has a 2 mm lung nodule. Migraine Past Surgical History: Chest tube placement, left-knee surgery. Medications: Reviewed. Allergies: Amoxicillin and erythromycin. Family History: Lung cancer at the age of 25, DM type 2, Graves disease. Social History: Patient vapes, takes around 40 puffs every day. Used to smoke two pack cigarettes before that. Occasional alcohol use Denied drug use Family History: Diabetes mellitus G8 FATHER Thyroid disease G8 FATHER Allergies: Coded Allergies: Amoxicillin (Verified Allergy, Unknown, 12/01/24) Erythromycin (Verified Allergy, Unknown, 12/01/24) Home Meds Reported Medications Sumatriptan Succinate (Sumatriptan Succinate) 100 Mg Tab, 1 TAB PO UD, #9 TAB 3 Refills 12/02/24 Acetaminophen (Tylenol Extra Strength) 500 Mg Tab, 500 MG PO, TAB 12/02/24 Ondansetron Odt 4MG Tab (ZOFRAN PO) 4 Mg Tb, 4 MG PO, TAB ODT TAB-DISSOLVE IN MOUTH, THEN SWALLOW 12/02/24 Albuterol Sulfate (VENTOLIN MDI) 90 Mcg Ih, 90 MCG IN, INH 12/02/24 Vital Signs Vital Signs Date Time Temp Pulse Resp B/P (MAP) Pulse Ox O2 Delivery O2 Flow Rate FiO2 12/06/24 19:31 99 Room Air 0.0 12/06/24 19:31 21 12/06/24 17:21 98.2 53 18 113/65 (81) 98.2 Physical Exam Gen.: Patient lying in bed in no apparent distress. On supplemental oxygen. Head: Normocephalic, atraumatic. Eyes: EOMI/PERRLA. Ears: Normal hearing. Normal anatomy. Neck/trachea: Trachea midline, supple. Nose: Normal external anatomy. Mouth: Moist mucous membranes. Chest: Decreased air entry bilaterally. No wheezing or rhonchi. Cardiovascular: Positive S1, positive S2. Regular rate and rhythm. Abdomen: Positive bowel sounds in all 4 quadrants. Soft, non-tender, non- distended. : Deferred. Rectal: Deferred. Skin: Warm, dry. Intact. Extremities: 2+ radial pulses bilaterally. No lower extremity edema. Neuro: Awake, alert, oriented x3. No gross motor or sensory deficits. Cranial nerves II through XII intact. Gait not assessed. Labs/Diagnostic Data Labs Test 12/06/24 18:54 12/04/24 16:27 12/03/24 13:43 12/03/24 12:40 Range/Units Blood Gas Specimen Type Arterial Blood Gas Sample Site Left radial Blood Gas Patient Temperature 37.0 Arterial Blood Date Drawn [id number] Arterial Blood pH 7.421 7.350-7.450 Arterial Blood Partial Pressure CO2 37.6 35.0-48.0 mmHg Arterial Blood Partial Pressure O2 147.3 H 83.0-108.0 mmHg Arterial Blood HCO3 23.9 21.0-28.0 mmol/L Arterial Blood Oxygen Saturation 98.4 H 94.0-98.0 % Arterial Blood Base Excess -0.3 -2.0-3.0 mmol/L Arterial Blood Oxyhemoglobin 97.5 94.0-98.0 % Arterial Blood Carboxyhemoglobin 0.3 L 0.5-1.5 % Arterial Blood Methemoglobin 0.6 0.0-1.5 % Burton Test Modified Blood Gas Total Hemoglobin 13.90 13.5-17.5 g/dL Blood Gas Liter Flow 2.00 Blood Gas Modality Nasal cannula FiO2 % 28.0 Erythrocyte Sedimentation Rate 2 0-20 mm/hr Creatine Kinase 56 46-171 U/L C-Reactive Protein High Sensitivity < 0.02 <1.0 mg/dL Anti-Nuclear Antibody Screen Negative Negative White Blood Count 6.0 4.4-10.8 10^3/uL Red Blood Count 4.88 4.5-5.90 10^6/uL Hemoglobin 14.8 13.5-17.5 g/dL Hematocrit 44.3 41.0-53.0 % Mean Corpuscular Volume 90.8 80.0-100.0 fL Mean Corpuscular Hemoglobin 30.2 28.0-32.0 pg Mean Corpuscular Hemoglobin Concent 33.3 32.0-36.0 g/dL Red Cell Distribution Width 12.9 11.8-14.3 % Platelet Count 185 140-450 10^3/uL Mean Platelet Volume 9.1 6.9-10.8 fL Neutrophils (%) (Auto) 59.6 37.0-80.0 % Lymphocytes (%) (Auto) 31.4 10.0-50.0 % Monocytes (%) (Auto) 6.0 0.0-12.0 % Eosinophils (%) (Auto) 2.3 0.0-7.0 % Basophils (%) (Auto) 0.7 0.0-2.0 % Neutrophils # (Auto) 3.6 1.6-8.6 10 ^3/uL Lymphocytes # (Auto) 1.9 0.4-5.4 10 ^3/uL Monocytes # (Auto) 0.4 0-1.3 10 ^3/uL Eosinophils # (Auto) 0.1 0-0.8 10 ^3/uL Basophils # (Auto) 0 0-0.2 10 ^3/uL Nucleated Red Blood Cells 0.1 % Sodium Level 139 136-145 mmol/L Potassium Level 3.9 3.5-5.1 mmol/L Chloride Level 105 98-107 mmol/L Carbon Dioxide Level 27 20-31 mmol/L Anion Gap 7 5-15 Blood Urea Nitrogen 19 9-23 mg/dL Creatinine 1.05 0.700-1.30 mg/dL Glomerular Filtration Rate Calc 102 >90 mL/min BUN/Creatinine Ratio 18.1 10.0-20.0 Serum Glucose 84 74-106 mg/dL Calcium Level 9.9 8.7-10.4 mg/dL Urine Opiates Screen Pos NEGATIVE Urine Fentanyl Screen Pos NEGATIVE Urine Barbiturates Screen Neg NEGATIVE Urine Phencyclidine Screen Neg NEGATIVE Urine Amphetamines Screen Neg NEGATIVE Urine Benzodiazepines Screen Neg NEGATIVE Urine Cocaine Screen Neg NEGATIVE Urine Cannabinoids Screen Neg NEGATIVE Test 12/02/24 05:00 12/02/24 02:45 12/01/24 23:54 12/01/24 21:20 Range/Units Urine Color Yellow Yellow Urine Clarity Clear Clear Urine pH 7.5 5.0-9.0 Urine Specific [place] > 1.035 H 1.001-1.035 Urine Protein 1+ H Negative Urine Ketones Negative Negative Urine Blood Negative Negative /uL Urine Nitrite Negative Negative Urine Bilirubin Negative Negative Urine Urobilinogen 2 H Negative mg/dL Urine Leukocyte Esterase Negative Negative /uL Urine RBC 8 0 - 3 /hpf Urine Microscopic WBC 4 H 0-3 /HPF Urine Squamous Epithelial Cells None seen <5 /hpf Urine Calcium Oxalate Crystals Few None Seen Urine Bacteria None seen None Seen /hpf Urine Glucose Normal Normal mg/dL Influenza Type A Antigen Negative Negative Influenza Type B Antigen Negative Negative SARS-CoV-2 Antigen (Rapid) Negative NEGATIVE Troponin I High Sensitivity 4 </=54 ng/L Vitamin B12 Level 483 211-911 pg/mL Folic Acid 14.99 >5.38 ng/mL Thyroid Stimulating Hormone (TSH) 1.86 0.55-4.78 uIU/mL Test 12/01/24 16:41 Range/Units D-Dimer, Quantitative < 0.19 0.0-0.49 mg/L FEU Assessment Impression: Acute hypoxic respiratory failure Dependence on supplemental oxygen Chest pain, ACS ruled out Recurrent small spontaneous pneumothorax; left lung apex bleb Hx of pulmonary nodule Nicotine dependence (vaping) Substance use Plan: VQ scan: Very Low prob of PE CT Chest reviewed. Left lung apex bleb. Echo: LVEF 60%. Trivial pericardial effusion. ALAN negative Hx of PTX possibly VILI, very small left apex bleb Recommend outpatient Alpha 1 AT Supplemental oxygen Titrate to keep O2 sats above 92%. Taper o2 as tolerated Pain control Avoid oversedation IV fluids with LR at 125 ml/hr. Incentive spirometry Monitor renal function. Monitor electrolytes. Supplement as necessary. Monitor ins and outs. DVT prophylaxis. Prognosis: Poor given patient's multiple co-morbidities. Rest of plan per hospitalist and other consultants. Thank you Dr. Owens, for allowing me to participate in this patient's care. Further recommendations will depend on the patient's clinical course. Please do not hesitate to contact me if you have any questions or concerns. This medical document was created using an electronic medical record system with [email or web address] dictation system. Although these documentations are being carefully reviewed, there may still be some phonetic and typographical changes. The errors are purely typographical, due to imperfection on the software program, and do not reflect any compromise in the patient's medical care. Plan discussed with: Other (IVANA Bojorquez/Dr. Owens) GRACIELA RAMIREZ MD Dec 06, 2024 20:45
[2024-12-07] VITALS (9 sets, daily range): BP systolic 98–115; BP diastolic 50–66; PULSE 46–86; RESP 18–20; TEMP 97.4–98.2; O2SAT 97–100
--- NOTE | 2024-12-07 13:54 | DVHPN2 ---
Consult Progress Note Date Seen: Dec 07, 2024 Subjective Review of Systems: CVS:Normal, RESPIRATORY:Normal, NEURO:Normal Objective vital signs Vital Sign Date Time Temp Pulse Resp B/P (MAP) Pulse Ox O2 Delivery O2 Flow Rate FiO2 12/07/24 12:27 97.8 54 20 99/59 (72) 100 97.8 12/07/24 09:54 Room Air* 0 21 Total Intake and Output 12/06/24 12/06/24 12/07/24 15:00 23:00 07:00 Intake Total 900 ml 500 ml 1691 ml Output Total 650 ml Balance 900 ml 500 ml 1041 ml medications Current Medications Medications Dose Ordered Sig/Larry Route Start Time Stop Time Status Last Admin Dose Admin Ipratropium [place] 0.5 mg Q4HPRN PRN NEB 12/01/24 23:45 12/03/24 13:06 0.5 MG Albuterol 2.5 mg Q4HPRN PRN NEB 12/01/24 23:45 12/03/24 13:06 2.5 MG Morphine Sulfate 0.5 mg Q6HP PRN IV 12/02/24 05:45 12/06/24 22:42 0.5 MG Ketorolac Tromethamine 15 mg Q6HR IV 12/02/24 18:00 12/07/24 17:59 12/07/24 12:21 15 MG Acetaminophen 650 mg Q6HP PRN PO 12/02/24 18:15 12/02/24 22:06 650 MG Lactated Ringer's 1,000 ml @ 125 mls/hr Q8H IV 12/03/24 08:00 12/07/24 00:53 125 MLS/HR Examination: LUNGS:Normal (Off O2), CVS:Normal, NEURO:Normal laboratory and microbiology Laboratory Tests 12/03/24 13:43 Test 12/03/24 13:43 Range/Units Serum Glucose 84 74-106 mg/dL Problem List/Assessment/Plan Problem List/Assessment/Plan Persistent chest pain rule out congenital heart disease Recurrent small spontaneous pneumothorax Dilated inferior vena cava Sinus bradycardia at rest Pertinent family history of CHF Substance abuse with fentanyl Nicotine dependence including 28 pack-years Plan/Recommendation (Dr. Ewing) Doubt chest pain secondary to ACS. Preliminary transthoracic echocardiogram with bubble study did not reveal evidence of intra-atrial shunt. ABG with optimal PO2. child monitor revealed a sinus bradycardia rhythm at rest with no evidence of atrioventricular blocks or sinus pauses. Negative orthostatic vital signs. Strongly counseled on tobacco/e-cigarette cessation. There is no further cardiac work-up indicated at this time. Kindly call if in need to re- consult. Thank you for allowing us to participate in this patient's care. This medical document was created using an electronic medical record system with voice recognition software and computerized dictation system. Although this document has been carefully reviewed, there might still be some phonetic and typographical errors. Occasional wrong-word or ``sound-alike substitutions may have occurred due to the inherent limitations of voice recognition software. These areas are purely typographical due to imperfections of the software programs and do not reflect any compromise in the patient's medical care. Please read the chart carefully and recognize, using context, where these substitutions have occurred. Plan discussed with: Patient, Other Dietary Evaluation Review Comments: Continue current plan of care Expected Outcomes/Goals: PO intake to meet 75% estimated needs FU 5-7 days Date of Service: Dec 07, 2024 Billing Provider: AEL HORN Cardiology Common Codes: [id number] INP/OBS CARE(Mod) ALE HORN Dec 07, 2024 13:53
--- NOTE | 2024-12-07 19:23 | DVHPNRES ---
Progress Note Date Seen: Dec 07, 2024 Resident Creating Document: CINTHYA BISHOP RESIDENT Has the PT tested + for MRSA If YES, has PT been informed?: No Medical Necessity Reason Pt with a Central, PICC or Fol: No Medical Necessity Reason Medical Necessity Reason 24-year-old male patient with past medical history of spontaneous pneumothorax, tobacco use disorder presented with complaints of chest pain, shortness of breath, lightheadedness, syncope. Patient started having chest pain one month ago for which she went to [place] where he was discharged and was told that he has blebs on the imaging, went to [place] where he was discharged from the ED. patient started having on and off chest pain and for last seven days mentioned the chest pain is constant which he describes as diffuse, nonradiating, sharp, no relation with activity or posterior, no aggravating or relieving factors. He also mentioned for last three days he started having associated shortness of breath which increased on exertion and lightheadedness, per girlfriend bedside patient blacked out for 30 seconds three days ago. Patient mentioned that he had spontaneous pneumothorax one year ago for which he had chest tube placement. He also mentioned he was told that he has 2 mm lung nodule. Past medical history :Spontaneous pneumothorax,Migraine Past Surgical history: Chest tube placement Medication history: Sumatriptan and ondansetron Social history: Patient vapes, takes around 40 puffs every day, used to smoke two pack cigarettes before that, Occasional alcohol use, Denied marijuana or any other drug intake Allergic history: Amoxicillin and azithromycin Family history: Lung cancer at the age of 25, Graves disease PN: 12/02/2024: Patient continue to have chest pain. Ischemic work up thus far is negative. He is currently on pain management and oxygen. His UDS came back positive for fentanyl and opiates. Opiates most likely from the morphine he received at the Hospital early. ECHO showed lvef 60% by visual estimate normal RV function PN: 12/03/2024 Patient is seen and examined today by the bedside. I told the patient about the presence of fentanyl and all of his in his urine. Opiates most likely from the morphine the patient had received here for fentanyl can not tell why he came home. Better this afternoon patient's mother came upset that we are indicating said he has an uses drugs. I sent a lot of time explaining to have that are more going by data that was present on the patient. This plan by step everything that has been done to the patient's since he has been here had the patient walk with the nurse and patient is seems to be breathing through his mouth however he was sat thus 100%. Mother had meal repeat the patient's urinalysis in UDS and also a chest CT. A repeat CT chest today ( 12/03/2024) revealed Bleb in the left lung apex. No pneumothorax. Management is mainly oxygen and pain management. A repeat UDS still is positive for fentanyl. Of note, mother mentioned that she has a 2nd son also has blebs in his lungs and one of their cousins female, also get spontaneous pneumothorax. Patient's father had pneumothorax after MVA which is was attributed to the trauma. Patient's mother also mentioned that their grandfather also had similar body habitus with pectus excavatum as noted in this patient. Patient also has a mild mild scoliosis. There seem to be a genetic component to this spontaneous p neumothorax. They have never been tested for alpha 1 anti-trypsin. Mother was present. Had many questions regarding the fentanyl found in patient's urine. PN: 12/04/2024: Seen by Dr. Ventura PN: 12/05/2024: Patient seen today during round. Lying in bed. He failed yesterday 12/04 due to fatigue, echo grossly normal. no localized weakness.ALAN blood requested. pending the result. Patient said he was able to walk with PT. although tired he is been pushing through. PN: 12/06/2024: Patient seen today during round. Lying in bed. He failed on 12/04 due to fatigue, echo grossly normal. no localized weakness.ALAN blood requested. pending AN result. Consult Cardiology and pulmonology to review the case. PN: 12/07/2024: Patient seen today during round. Lying in bed. He had bubble echo done. Pending the report. Also seen by pulmonology. recommended out patient follow for alpha one anti-trypsin testing. ALAN is negative. Patient mentioned that his dentist he has weak jaw bone and lost lost his teeth. So, he wears dentures. Subjective Review of Systems Constitutional: Denies fever no chills no feeling of malaise, fatigued and weakness on walking HEENT: Denies headache, ear pain, ear discharges, conjunctivitis, nasal discharge throat pain Cardiovascular: Denies chest pain, palpitation, orthopnea, PND, or pedal edema Respiratory: Denies shortness of breath at rest, but shortness of breath with exertion, no cough, sputum production, hemoptysis, GI: Denies abdominal pain, nausea, vomiting, diarrhea, hematemesis, hematochezia, : Denies frequency, urgency, hematuria, Endocrine: Denies unintentional weight gain or weight loss, feeling of hot flashes, Richie: Denies easy bruising, bleeding disorders, epistaxis Musculoskeletal: Denies joint pains, muscle aches Psych: No evidence of depression, michael, suicidal ideation Objective vital signs Vital Sign Date Time Temp Pulse Resp B/P (MAP) Pulse Ox O2 Delivery O2 Flow Rate FiO2 12/07/24 18:20 98 Room Air 0.0 12/07/24 18:20 21 12/07/24 16:41 98.0 66 18 98/56 (70) 98.0 Total Intake and Output 12/06/24 12/06/24 12/07/24 15:00 23:00 07:00 Intake Total 900 ml 500 ml 1691 ml Output Total 650 ml Balance 900 ml 500 ml 1041 ml medications Current Medications Medications Dose Ordered Sig/Larry Route Start Time Stop Time Status Last Admin Dose Admin Ipratropium [place] 0.5 mg Q4HPRN PRN NEB 12/01/24 23:45 12/03/24 13:06 0.5 MG Albuterol 2.5 mg Q4HPRN PRN NEB 12/01/24 23:45 12/03/24 13:06 2.5 MG Morphine Sulfate 0.5 mg Q6HP PRN IV 12/02/24 05:45 12/06/24 22:42 0.5 MG Acetaminophen 650 mg Q6HP PRN PO 12/02/24 18:15 12/02/24 22:06 650 MG Lactated Ringer's 1,000 ml @ 125 mls/hr Q8H IV 12/03/24 08:00 12/07/24 00:53 125 MLS/HR Examination General Appearance: Alert, Oriented X3, Cooperative, No acute distress, skinny built, tall, mild temporally wasting HEENT: Atraumatic, PERRLA, EOMI, Mucous membrane moist/moint, no lens dislocation or displacement, wears denturs Respiratory: pectus excavatum, ribs obvious Clear to auscultation, Normal air movement Cardiovascular: Regular rate, Normal S1, Normal S2, No murmurs, no chest wall tenderness Abdominal: flat , no tenderness, bowel sounds present, no scars noted Extremities: arms are proportional, No finger joint laxity, No clubbing, No cyanosis, No edema, Normal pulses, No tenderness/swelling Skin: No rashes, No breakdown, No significant lesion, no skin laxity Neuro: Normal gait thought slow, Normal speech, Strength at 5/5 X4 ext, Normal tone, Sensation intact, Cranial nerves 3-12 NL, Reflexes 2+ Psych/Mental Status: Mental status NL, Mood NL laboratory and microbiology Laboratory Tests 12/03/24 13:43 Test 12/03/24 13:43 Range/Units Serum Glucose 84 74-106 mg/dL Problem List/Assessment/Plan Problem List/Assessment/Plan Assessment Recurrent small Spontaneous pneumothorax --> Repeat CT chest: Bleb in the left lung apex. No pneumothorax. --> History of spontaneous pneumothorax --> Pain management --> Oxygen PRN, on 2L oxygen --> alpha 1 anti-trypsin testing recommended outpatient testing --> Pulmonology following Acute hypoxic respiratory failure, currently on 2 L --> duo nebs p.r.n. --> CT chest: --> IV antibiotics considering patient has fever and pleuritic type of chest pain with possibility of pneumonia Chest pain, ACS ruled out -->pleuritic type of chest pain, which is sharp -->EKG : Bradycardia HR 47, Tropos: Negative -->Echo: lvef 60% by visual estimate,normal RV function Mild hypotension Dizziness on walking --> NS bolus Myositis work up --> ALAN negative Rule out structural congenital abnormality --> Bubble Echo done, pending report --> Cardiology following Constipation --> Miralax Chest pain likely due to recurrent spontaneous pneumothorax Bradycardia likely secondary to Fentanyl --> HR: 47 --> EKG: shows bradycardia --> Counselled patient extensively on polysubstance abusive Polysubstance use and dependence --> Repeat UDS 12/03/2024: still positive for fentanyl -->UDS positive: Fentanyl Syncope Head CT with CTA head and neck: No abnormality demonstrated. Carotid ultrasound: No evidence of hemodynamically significant stenosis. Echocardiogram: lvef 60% by visual estimate normal RV function TSH, B12, folate: WNL Lung nodule --> Repeat CT chest: Lungs: No focal consolidation. --> follow up with the pulmonology out patient Tobacco and vaping use disorder -Counseling for cessation R/o polymyositis and CTD, a1 antitripsin --> Patient mentioned a family history of cirrhosis --> ALAN: Negative DVT prophylaxis Patient is ambulatory Goal of care discussed for more than 18 minutes: Full code Case and plan discussed + Dr. Ventura Plan discussed with: Patient Dietary Evaluation Review Comments: Continue current plan of care Expected Outcomes/Goals: PO intake to meet 75% estimated needs FU 5-7 days Date of Service: Dec 07, 2024 Billing Provider: ISABEL VENTURA MD Common Visit Codes: [id number] INP/OBS CARE(HIGH) CINTHYA BISHOP RESIDENT Dec 07, 2024 19:23 ISABEL VENTURA MD Dec 08, 2024 20:46
--- NOTE | 2024-12-07 22:27 | DVHPN2 ---
Progress Note - Dictate Date Seen: Dec 07, 2024 Has the PT tested + for MRSA If YES, has PT been informed?: No Medical Necessity Reason Pt with a Central, PICC or Fol: No Subjective Patient seen and examined at bedside. Breathing comfortably on room air. Overnight events reviewed. vital signs Vital Sign Date Time Temp Pulse Resp B/P (MAP) Pulse Ox O2 Delivery O2 Flow Rate FiO2 12/07/24 20:00 Room Air* 0 21 12/07/24 18:20 98 12/07/24 16:41 98.0 66 18 98/56 (70) 98.0 Total Intake and Output 12/06/24 12/06/24 12/07/24 15:00 23:00 07:00 Intake Total 900 ml 500 ml 1691 ml Output Total 650 ml Balance 900 ml 500 ml 1041 ml medications Current Medications Medications Dose Ordered Sig/Larry Route Start Time Stop Time Status Last Admin Dose Admin Ipratropium [place] 0.5 mg Q4HPRN PRN NEB 12/01/24 23:45 12/03/24 13:06 0.5 MG Albuterol 2.5 mg Q4HPRN PRN NEB 12/01/24 23:45 12/03/24 13:06 2.5 MG Morphine Sulfate 0.5 mg Q6HP PRN IV 12/02/24 05:45 12/06/24 22:42 0.5 MG Acetaminophen 650 mg Q6HP PRN PO 12/02/24 18:15 12/02/24 22:06 650 MG Lactated Ringer's 1,000 ml @ 125 mls/hr Q8H IV 12/03/24 08:00 12/07/24 00:53 125 MLS/HR objective Gen.: Patient lying in bed in no apparent distress. Breathing on room air. Head: Normocephalic, atraumatic. Eyes: EOMI/PERRLA. Ears: Normal hearing. Normal anatomy. Neck/trachea: Trachea midline, supple. Nose: Normal external anatomy. Mouth: Moist mucous membranes. Chest: Decreased air entry bilaterally. No wheezing or rhonchi. Cardiovascular: Positive S1, positive S2. Regular rate and rhythm. Abdomen: Positive bowel sounds in all 4 quadrants. Soft, non-tender, non- distended. : Deferred. Rectal: Deferred. Skin: Warm, dry. Intact. Extremities: 2+ radial pulses bilaterally. No lower extremity edema. Neuro: Awake, alert, oriented x3. No gross motor or sensory deficits. Cranial nerves II through XII intact. Gait not assessed. laboratory and microbiology Laboratory Tests 12/03/24 13:43 Test 12/03/24 13:43 Range/Units Serum Glucose 84 74-106 mg/dL Assessment/Plan Impression: Acute hypoxic respiratory failure Chest pain, ACS ruled out Recurrent small spontaneous pneumothorax; left lung apex bleb Hx of pulmonary nodule Nicotine dependence (vaping) Substance use Events: Breathing on room air Supplemental oxygen PRN Continue IV fluids Cardiology recs appreciated Continue bronchodilators Pain control Avoid oversedation Recommend outpatient PFTs Recommend A1AT testing as outpatient. Labs and imaging reviewed. Rest of plan as noted below. Plan: VQ scan: Very Low prob of PE CT Chest reviewed. Left lung apex bleb. Echo: LVEF 60%. Trivial pericardial effusion. ALAN negative Hx of PTX possibly VILI, very small left apex bleb Recommend outpatient Alpha 1 AT Supplemental oxygen PRN Titrate to keep O2 sats above 92%. Continue bronchodilators Pain control Avoid oversedation IV fluids with LR at 125 ml/hr. Incentive spirometry Monitor renal function. Monitor electrolytes. Supplement as necessary. Monitor ins and outs. DVT prophylaxis. Prognosis: Poor given patient's multiple co-morbidities. Rest of plan per hospitalist and other consultants. Thank you Dr. Owens, for allowing me to participate in this patient's care. Further recommendations will depend on the patient's clinical course. Please do not hesitate to contact me if you have any questions or concerns. This medical document was created using an electronic medical record system with [employer] dictation system. Although these documentations are being carefully reviewed, there may still be some phonetic and typographical changes. The errors are purely typographical, due to imperfection on the software program, and do not reflect any compromise in the patient's medical care. Dietary Evaluation Review Comments: Continue current plan of care Expected Outcomes/Goals: PO intake to meet 75% estimated needs FU 5-7 days Plan discussed with: Patient, Other (RN) GRACIELA RAMIREZ MD Dec 07, 2024 22:26
--- NOTE | 2024-12-08 13:40 | DVHSR ---
APPROVED REPORT EXAM: LIMITED Two-dimensional echocardiogram with contrast. INDICATION Limited for Bubble study RISK FACTORS Height: 6', Weight: 182 Mitral Valve MitralMitral Stenosis E/A ratio0.02D MVAcm2 ATRIA Injection of bubbles documented no interatrial shunt. Other Information Quality : Technically LimitedRhythm : Technically limited study due to body habitus. Conclusion Technically limited study. Sinus bradycardia. That appeared to be normal chamber sizes. Valves appear to be structurally normal. Left ventricular function appears preserved. EF of 60%. Normal RV function Unremarkable Doppler. No pericardial effusion masses or vegetations.
--- NOTE | 2024-12-08 21:59 | DVHPN2 ---
Progress Note - Dictate Date Seen: Dec 08, 2024 Has the PT tested + for MRSA If YES, has PT been informed?: No Medical Necessity Reason Pt with a Central, PICC or Fol: No Subjective Patient seen and examined at bedside. Breathing comfortably on room air. Overnight events reviewed. vital signs Vital Sign Date Time Temp Pulse Resp B/P (MAP) Pulse Ox O2 Delivery O2 Flow Rate FiO2 12/07/24 20:00 Room Air* 0 21 12/07/24 18:20 98 12/07/24 16:41 98.0 66 18 98/56 (70) 98.0 Total Intake and Output 12/07/24 12/07/24 12/08/24 15:00 23:00 07:00 Intake Total 400 ml Output Total 600 ml Balance -200 ml objective Gen.: Patient lying in bed in no apparent distress. Breathing on room air. Head: Normocephalic, atraumatic. Eyes: EOMI/PERRLA. Ears: Normal hearing. Normal anatomy. Neck/trachea: Trachea midline, supple. Nose: Normal external anatomy. Mouth: Moist mucous membranes. Chest: Decreased air entry bilaterally. No wheezing or rhonchi. Cardiovascular: Positive S1, positive S2. Regular rate and rhythm. Abdomen: Positive bowel sounds in all 4 quadrants. Soft, non-tender, non- distended. : Deferred. Rectal: Deferred. Skin: Warm, dry. Intact. Extremities: 2+ radial pulses bilaterally. No lower extremity edema. Neuro: Awake, alert, oriented x3. No gross motor or sensory deficits. Cranial nerves II through XII intact. Gait not assessed. laboratory and microbiology Laboratory Tests 12/03/24 13:43 Test 12/03/24 13:43 Range/Units Serum Glucose 84 74-106 mg/dL Assessment/Plan Impression: Acute hypoxic respiratory failure Chest pain, ACS ruled out Recurrent small spontaneous pneumothorax; left lung apex bleb Hx of pulmonary nodule Nicotine dependence (vaping) Substance use Events: Breathing on room air Supplemental oxygen PRN Incentive spirometry Pain control Avoid oversedation Monitor blood pressure Stop IV fluids Hydralazine 10 mg IVP q.6 hours PRN SBP above 160 mmHg Cardiology recs appreciated Recommend outpatient PFTs Recommend A1AT testing as outpatient. Labs and imaging reviewed. Rest of plan as noted below. Plan: VQ scan: Very Low prob of PE CT Chest reviewed. Left lung apex bleb. Echo: LVEF 60%. Trivial pericardial effusion. ALAN negative Hx of PTX possibly VILI, very small left apex bleb Recommend outpatient Alpha 1 AT Supplemental oxygen PRN Titrate to keep O2 sats above 92%. Continue bronchodilators Incentive spirometry Pain control Avoid oversedation Monitor renal function. Monitor electrolytes. Supplement as necessary. Monitor ins and outs. DVT prophylaxis. Prognosis: Guarded given patient's multiple co-morbidities. Rest of plan per hospitalist and other consultants. Thank you Dr. Owens, for allowing me to participate in this patient's care. Further recommendations will depend on the patient's clinical course. Please do not hesitate to contact me if you have any questions or concerns. This medical document was created using an electronic medical record system with [employer] dictation system. Although these documentations are being carefully reviewed, there may still be some phonetic and typographical changes. The errors are purely typographical, due to imperfection on the software program, and do not reflect any compromise in the patient's medical care. Dietary Evaluation Review Comments: Continue current plan of care Expected Outcomes/Goals: PO intake to meet 75% estimated needs FU 5-7 days Plan discussed with: Patient, Other (IVANA Jean Baptiste) GRACIELA RAMIREZ MD Dec 08, 2024 21:59
--- NOTE | 2024-12-09 14:24 | DVHDSRES ---
Discharge Summary Date of Admission Resident Creating Document: CINTHYA BISHOP RESIDENT Dec 01, 2024 at 22:21 Date of Discharge: Dec 07, 2024 Admitting Diagnosis Shortness of breath Labs/Diagnostic Data: PATIENT: GRACIELA HOPE ACCT: [id number] UNIT: [id number] : 2000 LOC: [facility] / [place] [place] / AGE / SEX: 24 / M ADM STATUS: ADM IN SERVICE 1137 ORDERING PHYSICIAN: ISABEL HILLMAN MD PROCEDURE(s): VQ - NM VQ SCAN REASON: PULMONARY EMBOLISM ORDER NUMBER(s): [id number], ACCESSION NUMBER(s): [id number] EXAM: NM NM VQ SCAN HISTORY: PULMONARY EMBOLISM COMPARISON: None TECHNIQUE: 3.8 mCi of Tc99m MAA were utilized for the perfusion portion of the study. 4.3 mCi of xenon 133 were utilized for the ventilation portion of the study. FINDINGS: Ventilation and perfusion images show homogeneous uptake of the radiotracer in both lungs without ventilation or perfusion defects. IMPRESSION: 1. Normal VQ scan. Very low probability for pulmonary embolism. ATED BY: LES PERALES Jr. DO DICTATED DATE/TIME: 12/06/24 1530 PATIENT: GRACIELA HOPE ACCT: [id number] UNIT: [id number] : 2000 LOC: [facility] [place] AGE / SEX: 24 / M ADM STATUS: ADM IN SERVICE 1533 ORDERING PHYSICIAN: ISABEL HILLMAN MD PROCEDURE(s): LIVUS - LIVER REASON: a1 atnitripsin? ORDER NUMBER(s): [id number], ACCESSION NUMBER(s): [id number] INDICATION: a1 atnitripsin TECHNIQUE: Multiple real-time sonographic images of the abdomen were obtained. COMPARISON: None FINDINGS: Liver is normal in size measuring 15.7 cm and echogenicity with no lesions identified. There is no intrahepatic or extrahepatic biliary ductal dilatation with the common bile duct measuring 2.5 mm. Gallbladder appears unremarkable with no evidence of stones or wall thickening. Right kidney measures 9.9 cm and appears unremarkable with no hydronephrosis. Pancreas is obscured by overlying bowel gas. No fluid collection noted. IMPRESSION: No abnormality demonstrated. ATED BY: DHRUV BRYANT MD DICTATED DATE/TIME: 12/05/24 0027 PATIENT: GRACIELA HOPE ACCT: [id number] UNIT: [id number] : 2000 LOC: [facility] ROOM / BED: 0270T / B AGE / SEX: 24 / M ADM STATUS: ADM IN SERVICE 1240 ORDERING PHYSICIAN: CINTHYA BISHOP PROCEDURE(s): CX2CT - CHEST WITHOUT CONTRAST REASON: reassess the size of the Pneumothorax ORDER NUMBER(s): [id number], ACCESSION NUMBER(s): [id number] EXAM: CT Chest Without Intravenous Contrast CLINICAL INDICATION: reassess the size of the Pneumothorax TECHNIQUE: Axial computed tomography images of the chest without intravenous contrast. This CT exam was performed using one or more of the following dose reduction techniques: automated exposure control, adjustment of the mA and/or kV according to patient size, and/or use of iterative reconstruction technique. CONTRAST: RADIATION DOSE: CTDIvol = 5.68 mGy, DLP = 230.48 mGy-cm COMPARISON: CT CHEST WITHOUT CONTRAST on DOS: 12/02/24 FINDINGS: LUNGS AND PLEURAL SPACES: Bleb in the left lung apex. No pneumothorax. No significant effusion. HEART: Unremarkable. No cardiomegaly. No significant pericardial effusion. No significant coronary artery calcifications. BONES/JOINTS: Unremarkable. No acute fracture. No dislocation. SOFT TISSUES: Unremarkable. VASCULATURE: Unremarkable. No thoracic aortic aneurysm. LYMPH NODES: Unremarkable. No enlarged lymph nodes. OTHER FINDINGS: . IMPRESSION: Bleb in the left lung apex. No pneumothorax. ATED BY: RAMESH KAUR MD DICTATED DATE/TIME: 12/03/24 1347 PATIENT: GRACIELA HOPE ACCT: [id number] UNIT: [id number] : 2000 LOC: [facility] / BED: 1021-ERT / A AGE / SEX: 24 / M ADM STATUS: ADM IN SERVICE 35 ORDERING PHYSICIAN: JOHANNE TURNER RESIDENT PROCEDURE(s): [place] - ANGIO HEAD/Neck REASON: SYNCOPE ORDER NUMBER(s): [id number], ACCESSION NUMBER(s): [id number] INDICATION: SYNCOPE COMPARISON: None TECHNIQUE: CTA head without and with intravenous contrast. CTA neck with intravenous contrast. 3D image postprocessing was performed on a dedicated workstation and images were used for interpretation and reporting. Radiation Dose Information: CT Dose: CTDI volume is mGy. Dose-length product is mGy*cm FINDINGS: CT head: There is no evidence of intracranial hemorrhage, infarct, extra-axial collection, mass effect, midline shift, herniation or hydrocephalus. The ventricles, sulci and cisterns are normal. The mason-white differentiation is normal. Visualized paranasal sinuses and mastoid air cells are clear. Soft tissues and osseous structures are unremarkable. CTA head: No abnormality is demonstrated in intracranial ICAs, MCAs, and ACAs. Intracranial vertebral arteries, basilar artery, and tank calibrator are also unremarkable. Visualized intracranial venous structures are grossly unremarkable. CTA neck: Aortic arch and proximal great vessels are unremarkable. Left common, internal and external carotid arteries are normal. Right common, internal and external carotid arteries are normal. Cervical segments of the right and left vertebral arteries are normal. Limited visualized lung apices are clear. Soft tissues and osseous structures are grossly unremarkable. IMPRESSION: No abnormality demonstrated. All CT scans at this medical facility are performed using dose modulation techniques as appropriate to a performed exam including the following: Automated exposure control was utilized; adjustment of the MA and/or KV according to patient size; and use of iterative reconstruction technique. ATED BY: DHRUV BRYANT MD DICTATED DATE/TIME: 12/02/24 0046 PATIENT: GRAICELA HOPE ACCT: [id number] UNIT: [id number] : 2000 LOC: [facility] / BED: [facility] / A AGE / SEX: 24 / M ADM STATUS: ADM IN SERVICE 35 ORDERING PHYSICIAN: JOHANNE TURNER PROCEDURE(s): CX2CT - CHEST WITHOUT CONTRAST REASON: SHORTNESS OF BREATH ORDER NUMBER(s): [id number], ACCESSION NUMBER(s): [id number] Procedure: CT CHEST WITHOUT CONTRAST Reason for study/Clinical History: SHORTNESS OF BREATH Comparison Study: None available at time of dictation. Exam Date: 12/02/2024 12:05 AM TECHNIQUE: Multidetector CT of the chest was performed from the lung apices to the upper abdomen without the use of intravenous contract. Axial, coronal and sagittal multiplanar reformats were performed. Radiation Dose Information: CT Dose: CTDI volume is mGy. Dose-length product is mGy*cm The dose indicators for CT are the volume Computed Tomography (CT) Dose Index (CTDIvol) and the Dose Length Product (DLP), and are measured in units of mGy and mGy-cm, respectively. These indicators are not patient dose, but values generated from the CT scanner acquisition factors. The report includes radiation exposure data for exposures received during this examination. FINDINGS: Lower neck: Unremarkable. Lungs: No focal consolidation. Pleura: No pleural effusion or pneumothorax. Heart/Vascular Structures: Normal heart size. No pericardial effusion. Normal thoracic aorta. Mediastinum / Lymph Nodes: No abnormality demonstrated. No lymphadenopathy. Musculoskeletal: No acute osseous abnormality. Soft tissues: Unremarkable. Upper abdomen: Unremarkable. IMPRESSION: No abnormality demonstrated. Radiation optimization: All CT scans at this facility use at least one of these dose optimization techniques: automated exposure control mA and/or kV adjustment per patient size (includes targeted exams where dose is matched to clinical indication) or iterative reconstruction. ATED BY: DHRUV BRYANT MD DICTATED DATE/TIME: 12/02/24 0152 PATIENT: GRACIELA HOPE ACCT: [id number] UNIT: [id number] : 2000 LOC: [facility] / BED: 102-ERT / A AGE / SEX: 24 / M ADM STATUS: ADM IN SERVICE 9296 ORDERING PHYSICIAN: JOHANNE TURNER PROCEDURE(s): CARCL - CAROTID DUPLX W COLOR DOP REASON: SYNCOPE ORDER NUMBER(s): [id number], ACCESSION NUMBER(s): [id number] Carotid Duplex Clinical History: SYNCOPE Comparison: None Technique: Duplex Doppler evaluation of the extracranial carotid and vertebral arteries including color Doppler and spectral/pulsed waveform analysis was performed. Findings: RIGHT SIDE: No significant atherosclerotic plaque noted. The peak systolic velocities are 136 cm/s in the CCA, 139 cm/s in the ICA. The ICA/CCA ratio is 1.0. The external carotid artery is patent with peak systolic velocity of 87 cm/s proximally. There is appropriate antegrade flow in the right vertebral artery. LEFT SIDE: No significant atherosclerotic plaque noted. The peak systolic velocities are 124 cm/s in the CCA, 118 cm/s in the ICA. The ICA/CCA ratio is 1.0. The external carotid artery is patent with peak systolic velocity of 91 cm/s proximally. There is appropriate antegrade flow in the left vertebral artery. IMPRESSION: No evidence of hemodynamically significant stenosis. Reference: Radiology 2003; 229:340-346 Normal ICA PSV is <125 cm/sec and no plaque or intimal thickening is visible sonographically additional criteria include ICA/CCA PSV ratio <2.0 and ICA EDV <40 cm/sec <50% ICA stenosis ICA PSV is <125 cm/sec and plaque or intimal thickening is visible sonographically additional criteria include ICA/CCA PSV ratio <2.0 and ICA EDV <40 cm/sec 50-69% ICA stenosis ICA PSV is 125-230 cm/sec and plaque is visible sonographically additional criteria include ICA/CCA PSV ratio of 2.0-4.0 and ICA EDV of 40-100 cm/sec 70% ICA stenosis but less than near occlusion ICA PSV is >230 cm/sec and visible plaque and luminal narrowing are seen at mason-scale and color Doppler ultrasound (the higher the Doppler parameters lie above the threshold of 230 cm/sec, the greater the likelihood of severe disease) additional criteria include ICA/CCA PSV ratio >4 and ICA EDV >100 cm/sec ATED BY: DHRUV BRYANT MD DICTATED DATE/TIME: 12/02/24 0038 PATIENT: GRACIELA HOPE ACCT: [id number] UNIT: [id number] : 2000 LOC: ER ROOM / BED: / AGE / SEX: 24 / M ADM STATUS: REG ER SERVICE 2115 ORDERING PHYSICIAN: KHADAR PETTIT MD PROCEDURE(s): CXR1 - CHEST XRAY 1 VIEW REASON: Chest pain ORDER NUMBER(s): [id number], ACCESSION NUMBER(s): [id number] EXAM: XY CHEST XRAY 1 VIEW CLINICAL HISTORY: Chest pain TECHNIQUE: Single AP view of the chest WID: COMPARISON: XY CHEST PORTABLE on DOS: 12/01/24 FINDINGS: Lines and tubes: None Chest: The heart size and pulmonary vasculature is within normal limits. No pleural effusion, pneumothorax, or consolidation. The osseous structures are grossly intact. IMPRESSION: No acute cardiopulmonary abnormality. ATED BY: ZEKE TA MD DICTATED DATE/TIME: 12/01/24 214 PATIENT: GRACIELA HOPE ACCT: [id number] UNIT: [id number] : 2000 LOC: ER ROOM / BED: / AGE / SEX: 24 / M ADM STATUS: REG ER SERVICE 1629 ORDERING PHYSICIAN: LEX HALL MD PROCEDURE(s): CXRP - CHEST PORTABLE REASON: sob ORDER NUMBER(s): [id number], ACCESSION NUMBER(s): [id number] EXAM: XY CHEST PORTABLE TECHNIQUE: Single frontal chest radiograph CLINICAL HISTORY: sob COMPARISON: None Findings/Impression: Frontal chest radiograph demonstrates no acute osseous or superficial soft tissue abnormalities. The trachea is midline. The cardiac silhouette and mediastinum are within normal limits. No pneumothorax, pleural effusions, or consolidations. ATED BY: TORIE BROWN DO DICTATED DATE/TIME: 12/01/24 1729 Laboratory Results Test 12/06/24 18:54 12/04/24 16:27 12/03/24 13:43 12/03/24 12:40 Blood Gas Specimen Type Arterial Blood Gas Sample Site Left radial Blood Gas Patient Temperature 37.0 Arterial Blood Date Drawn [id number] Arterial Blood pH 7.421 (7.350-7.450) Arterial Blood Partial Pressure CO2 37.6 mmHg (35.0-48.0) Arterial Blood Partial Pressure O2 147.3 mmHg (83.0-108.0) Arterial Blood HCO3 23.9 mmol/L (21.0-28.0) Arterial Blood Oxygen Saturation 98.4 % (94.0-98.0) Arterial Blood Base Excess -0.3 mmol/L (-2.0-3.0) Arterial Blood Oxyhemoglobin 97.5 % (94.0-98.0) Arterial Blood Carboxyhemoglobin 0.3 % (0.5-1.5) Arterial Blood Methemoglobin 0.6 % (0.0-1.5) Burton Test Modified Blood Gas Total Hemoglobin 13.90 g/dL (13.5-17.5) Blood Gas Liter Flow 2.00 Blood Gas Modality Nasal cannula FiO2 % 28.0 Erythrocyte Sedimentation Rate 2 mm/hr (0-20) Creatine Kinase 56 U/L (46-171) C-Reactive Protein High Sensitivity < 0.02 mg/dL (<1.0) Anti-Nuclear Antibody Screen Negative (Negative) White Blood Count 6.0 10^3/uL (4.4-10.8) Red Blood Count 4.88 10^6/uL (4.5-5.90) Hemoglobin 14.8 g/dL (13.5-17.5) Hematocrit 44.3 % (41.0-53.0) Mean Corpuscular Volume 90.8 fL (80.0-100.0) Mean Corpuscular Hemoglobin 30.2 pg (28.0-32.0) Mean Corpuscular Hemoglobin Concent 33.3 g/dL (32.0-36.0) Red Cell Distribution Width 12.9 % (11.8-14.3) Platelet Count 185 10^3/uL (140-450) Mean Platelet Volume 9.1 fL (6.9-10.8) Neutrophils (%) (Auto) 59.6 % (37.0-80.0) Lymphocytes (%) (Auto) 31.4 % (10.0-50.0) Monocytes (%) (Auto) 6.0 % (0.0-12.0) Eosinophils (%) (Auto) 2.3 % (0.0-7.0) Basophils (%) (Auto) 0.7 % (0.0-2.0) Neutrophils # (Auto) 3.6 10 ^3/uL (1.6-8.6) Lymphocytes # (Auto) 1.9 10 ^3/uL (0.4-5.4) Monocytes # (Auto) 0.4 10 ^3/uL (0-1.3) Eosinophils # (Auto) 0.1 10 ^3/uL (0-0.8) Basophils # (Auto) 0 10 ^3/uL (0-0.2) Nucleated Red Blood Cells 0.1 % Sodium Level 139 mmol/L (136-145) Potassium Level 3.9 mmol/L (3.5-5.1) Chloride Level 105 mmol/L (98-107) Carbon Dioxide Level 27 mmol/L (20-31) Anion Gap 7 (5-15) Blood Urea Nitrogen 19 mg/dL (9-23) Creatinine 1.05 mg/dL (0.700-1.30) Glomerular Filtration Rate Calc 102 mL/min (>90) BUN/Creatinine Ratio 18.1 (10.0-20.0) Serum Glucose 84 mg/dL (74-106) Calcium Level 9.9 mg/dL (8.7-10.4) Urine Opiates Screen Pos (NEGATIVE) Urine Fentanyl Screen Pos (NEGATIVE) Urine Barbiturates Screen Neg (NEGATIVE) Urine Phencyclidine Screen Neg (NEGATIVE) Urine Amphetamines Screen Neg (NEGATIVE) Urine Benzodiazepines Screen Neg (NEGATIVE) Urine Cocaine Screen Neg (NEGATIVE) Urine Cannabinoids Screen Neg (NEGATIVE) Test 12/02/24 05:00 12/02/24 02:45 12/01/24 23:54 12/01/24 21:20 Urine Color Yellow (Yellow) Urine Clarity Clear (Clear) Urine pH 7.5 (5.0-9.0) Urine Specific [place] > 1.035 (1.001-1.035) Urine Protein 1+ (Negative) Urine Ketones Negative (Negative) Urine Blood Negative /uL (Negative) Urine Nitrite Negative (Negative) Urine Bilirubin Negative (Negative) Urine Urobilinogen 2 mg/dL (Negative) Urine Leukocyte Esterase Negative /uL (Negative) Urine RBC 8 /hpf (0 - 3) Urine Microscopic WBC 4 /HPF (0-3) Urine Squamous Epithelial Cells None seen /hpf (<5) Urine Calcium Oxalate Crystals Few (None Seen) Urine Bacteria None seen /hpf (None Seen) Urine Glucose Normal mg/dL (Normal) Influenza Type A Antigen Negative (Negative) Influenza Type B Antigen Negative (Negative) SARS-CoV-2 Antigen (Rapid) Negative (NEGATIVE) Troponin I High Sensitivity 4 ng/L (</=54) Vitamin B12 Level 483 pg/mL (211-911) Folic Acid 14.99 ng/mL (>5.38) Thyroid Stimulating Hormone (TSH) 1.86 uIU/mL (0.55-4.78) Test 12/01/24 16:41 D-Dimer, Quantitative < 0.19 mg/L FEU (0.0-0.49) Other Laboratory Tests 12/03/24 13:43 Brief Hx & Hospital Course: History of Presenting illness 24-year-old male patient with past medical history of spontaneous pneumothorax, tobacco use disorder presented with complaints of chest pain, shortness of breath, lightheadedness, syncope. Patient started having chest pain one month ago for which she went to [place] where he was discharged and was told that he has blebs on the imaging, went to [place] where he was discharged from the ED. patient started having on and off chest pain and for last seven days mentioned the chest pain is constant which he describes as diffuse, non- radiating, sharp, no relation with activity or posterior, no aggravating or relieving factors. He also mentioned for last three days he started having associated shortness of breath which increased on exertion and lightheadedness, per girlfriend bedside patient blacked out for 30 seconds three days ago. Patient mentioned that he had spontaneous pneumothorax one year ago for which he had chest tube placement. He also mentioned he was told that he has 2 mm lung nodule. Past medical history :Spontaneous pneumothorax,Migraine Past Surgical history: Chest tube placement Medication history: Sumatriptan and ondansetron Social history: Patient vapes, takes around 40 puffs every day, used to smoke two pack cigarettes before that, Occasional alcohol use, Denied marijuana or any other drug intake Allergic history: Amoxicillin and azithromycin Family history: Lung cancer at the age of 25, Graves disease Brief Hospitals course Patient was admitted. His initial CT chest revealed small apical pneumothorax, Chest x-ray and ischemic work up a were unremarkable as well. Patient received pain medication and 2L oxygen. Spo2 while on admission has been 100 % however. However, patient kept complaining of shortness of breathe and severe weakness on exertion. Patient's mother was at bedside. She gave us detailed history and family history. Per the mother, patient's father had traumatic pneumothorax or at least it was noted after an accident. His younger brother also has spontaneous penumothorax has and pectus carinatum. One of their cousins ( Female 26 years old) was also told her had spontaneous pneumothorax, and one of their relatives has cirrhosis. Patient is tall (72in BMI: 24.7) with long limbs but not joint laxity OR noted. Given the patient's persistent chest pain and family history fo pneumothorax and weakness, we consider some underlying genetic pathology at play vs autoimmune. ALAN negative. Cardiology consulted to rule out any structural abnormality. Echo studies with bubble revealed Left ventricular function appears preserved. EF of 60%. Normal RV function unremarkable Doppler. No pericardial effusion masses or vegetations; Normal VQ scan.Very low probability for pulmonary embolism. The interior design instructor recommended outpatient [facility]. Patient mentioned to me that his dentist told him that his gum and bones his mouths are not strong enough. That is why he lost his teeth and now wears dentures. We planed to have patient walk with PT, check abg and ensure patient does not need oxygen at home. And I also mentioned to the patient that he would need to follow up with the interior design instructor outpatient and get genetic testing done. Patient expressed to me that he understands and we agreed on the plan. However, by the evening of 12/07/2024 evening, patient left AMA. Diagnoses Recurrent small Spontaneous pneumothorax Family history of spontaneous pneumothorax family history of cirrhosis Acute hypoxic respiratory failure, currently on 2 L Chest pain, ACS ruled out Mild hypotension Dizziness on walking Myositis work up Rule out structural congenital abnormality Constipation chest pain likely due to recurrent spontaneous pneumothorax Bradycardia likely secondary to Fentanyl UDS positive for Fentanyl Polysubstance use and dependence My attending, Dr. Hillman, was informed. Consults/Reason for consult Cardiology: Reason for Consultation: Chest pain with family hx of CV disease, rule out structural pathology Pulmonology Reason for Consultation Acute hypoxic respiratory failure Condition at Discharge: Undetermined Final Diagnosis/Problems List Recurrent small Spontaneous pneumothorax Acute hypoxic respiratory failure, currently on 2 L Chest pain, ACS ruled out Mild hypotension Dizziness on walking Myositis work up Rule out structural congenital abnormality Constipation chest pain likely due to recurrent spontaneous pneumothorax Bradycardia likely secondary to Fentanyl Polysubstance use and dependence Discharge Disposition: AMA Discharge Statement: "Patient was advised to return to the ER or call 911 if any headaches, dizziness, shortness of breath, chest pain, abdominal pain, bleeding, fevers, or worsening of medical condition. Patient was counseled about treatment plan, medications, possible side effects, patientverbalized understanding. All questions were answered to the best of my ability. This discharge took greater then 30 minutes in planning, reviewing documentation, counseling the patient, and discussing with other team members." ASSESSMENT ASSESSMENT Assessment Date of Service: Dec 07, 2024 Billing Provider: ISABEL HILLMAN MD Common Visit Codes: 21377-PCF/OBS DISCH DAY >30min CINTHYA BISHOP RESIDENT Dec 09, 2024 14:24 ISABEL HILLMAN MD Dec 09, 2024 22:09
== END 2024-12-07 20:21 | disposition left against medical advice (07) | DRG 140 ==
LOC: ER 16:05 → OVERFLOW 22:21 → TELE-WESTW 12-02 15:55
PROVIDERS: ADMIT Student in an Organized Health Care Education/Training Program; ATTEND Student in an Organized Health Care Education/Training Program
DX: J44.1 Chronic obstructive pulmonary disease with (acute) exacerbation (principal); J96.01 Acute respiratory failure with hypoxia; I95.9 Hypotension, unspecified; Z99.81 Dependence on supplemental oxygen; K59.00 Constipation, unspecified; R91.1 Solitary pulmonary nodule; J98.4 Other disorders of lung; G43.909 Migraine, unspecified, not intractable, without status migrainosus; E05.00 Thyrotoxicosis with diffuse goiter without thyrotoxic crisis or storm; Z53.21 Procedure and treatment not carried out due to patient leaving prior to being seen by health care provider; F17.210 Nicotine dependence, cigarettes, uncomplicated; Z88.3 Allergy status to other anti-infective agents; Z88.0 Allergy status to penicillin; Z80.1 Family history of malignant neoplasm of trachea, bronchus and lung; Z82.49 Family history of ischemic heart disease and other diseases of the circulatory system; Z83.3 Family history of diabetes mellitus
CPT/HCPCS: 36415; 36600; 70496; 70498; 71045; 71250; 76705; 78582; 80048; 80307; 81001; 82550; 82607; 82746; 82805; 84443; 84484; 85025; 85379; 85652; 86038; 86141; 87426; 87804; 93005; 93306; 93886; 94640; 96365; 96366; 96375; 97110; 97116; 97163; G0378; J1885; J1956